=== PATIENT | female | born 1940 | race Caucasian/White ===

== ENCOUNTER → 2017-05-22 | Outpatient (CLI) | payer OTHER ==
[~2017-05-22] MED LIST: ASPI81TA28 PO; ATV/2 PO; BENZ100C84 PO; ESCI1TAB10 PO; FLNIN/ NAE; LCTX PO; LISI-729 PO; LVQ750 PO; POLYSOL4 OPB; PRLSR20 PO; SIMV20TA2 PO; TRAZ1TAB8 PO
[2017-05-22 09:58] LABS: ALT/SGPT 16 U/L (12-78); AST/SGOT 13 U/L (15-37); BLOOD UREA NITROGEN 19 mg/dl (7-18); CALCIUM 10.3 mg/dl (8.5-10.1); CARBON DIOXIDE 29 mmol/L (21-32); CHLORIDE 109 mmol/L (98-107); GLUCOSE 119 mg/dl (70-99); POTASSIUM 4.6 mmol/L (3.5-5.1); SODIUM 142 mmol/L (136-145)
[2017-05-22 10:01] LABS: ALB/GLOB RATIO 1.1 (0.9-2); ALKALINE PHOSPHATASE 62 U/L (45-117); CHOLESTEROL 139 mg/dl (0-200); CHOLESTEROL/HDL RATIO 2.4; HDL CHOLESTEROL 57 mg/dl; LDL CHOLESTEROL CALCULATED 61 mg/dl; TRIGLYCERIDES 106 mg/dl (0-150); VERY LOW DENSITY LIPOPROT CALC 21 mg/dl
== END | disposition home or self-care (01) ==
LOC: C.LAB1850 07:10
PROVIDERS: ATTEND Physician Assistant Medical
DX: I10 Essential (primary) hypertension (principal); E78.00 Pure hypercholesterolemia, unspecified

== ENCOUNTER → 2017-10-16 | Outpatient (CLI) | payer OTHER ==
[~2017-10-16] MED LIST changes: -TRAZ1TAB8 PO; +TRAZ1TAB9 PO
== END | disposition home or self-care (01) ==
LOC: C.LABSPEC 11:43
PROVIDERS: ATTEND Internal Medicine
DX: N39.0 Urinary tract infection, site not specified (principal)

== ENCOUNTER → 2017-11-25 | Outpatient (CLI) | payer OTHER ==
[~2017-11-25] MED LIST changes: +TRAZ-122 PO; -TRAZ1TAB9 PO
[2017-11-25 12:34] LABS: HEMATOCRIT 40.8 % (37-47); MEAN CELL VOLUME 89.1 fL (80-100); MEAN CORPUSCULAR HEMOGLOBIN 28.4 pg (25-34); MEAN CORPUSCULAR HGB CONC 31.9 g/dl (32-36); MEAN PLATELET VOLUME 12.1 fL (7.4-10.4); PLATELET COUNT 195 K/uL (130-400); RED CELL DISTRIBUTION WIDTH CV 14.6 % (11.5-14.5); RED CELL DISTRIBUTION WIDTH SD 47.6 fL (36.4-46.3); WHITE BLOOD COUNT 6.73 K/uL (4.8-10.8)
[2017-11-25 13:11] LABS: ALBUMIN 3.6 gm/dl (3.4-5.0); ALT/SGPT 15 U/L (12-78); AST/SGOT 17 U/L (15-37); BLOOD UREA NITROGEN 19 mg/dl (7-18); CALCIUM 9.7 mg/dl (8.5-10.1); CARBON DIOXIDE 29 mmol/L (21-32); CHOLESTEROL 171 mg/dl (0-200); CREATININE 0.64 mg/dl (0.60-1.20); GLUCOSE 78 mg/dl (70-99); SODIUM 141 mmol/L (136-145)
[2017-11-25 13:21] LABS: ALKALINE PHOSPHATASE 68 U/L (45-117); LDL CHOLESTEROL CALCULATED 92 mg/dl; TOTAL PROTEIN 7.1 gm/dl (6.4-8.2)
== END | disposition home or self-care (01) ==
LOC: C.LABBFT 07:38
PROVIDERS: ATTEND Internal Medicine
DX: E78.00 Pure hypercholesterolemia, unspecified (principal)

== ENCOUNTER → 2018-01-21 | Outpatient (CLI) | payer OTHER | END | disposition home or self-care (01) | LOC: C.LABSPEC 17:35 | PROVIDERS: ATTEND Physician Assistant Medical | DX: N39.0 Urinary tract infection, site not specified (principal) ==

== ENCOUNTER → 2018-05-26 | Outpatient (CLI) | payer OTHER ==
[~2018-05-26] MED LIST changes: -TRAZ-122 PO; +TRAZ-162 PO
[2018-05-26 10:11] LABS: BASO % 0.4 %; BASO ABS # 0.04 K/uL (0-0.2); EOS % 1.4 %; EOS ABS # 0.15 K/uL (0-0.5); HEMATOCRIT 40.5 % (37-47); IG# 0.02 K/uL (0.00-0.02); LYMPH % 20.1 %; LYMPH ABS # 2.23 K/uL (1.2-3.4); MEAN CELL VOLUME 88.2 fL (80-100); MEAN CORPUSCULAR HEMOGLOBIN 28.3 pg (25-34); MEAN CORPUSCULAR HGB CONC 32.1 g/dl (32-36); MEAN PLATELET VOLUME 12.2 fL (7.4-10.4); MONO % 4.6 %; MONO ABS # 0.51 K/uL (0.11-0.59); NEUT % 73.3 %; NEUT ABS # 8.12 K/uL (1.4-6.5); PLATELET COUNT 220 K/uL (130-400); RED CELL DISTRIBUTION WIDTH CV 14.5 % (11.5-14.5); WHITE BLOOD COUNT 11.07 K/uL (4.8-10.8)
[2018-05-26 10:25] LABS: ALBUMIN 3.4 gm/dl (3.4-5.0); ALKALINE PHOSPHATASE 57 U/L (45-117); ALT/SGPT 14 U/L (12-78); AST/SGOT 18 U/L (15-37); BLOOD UREA NITROGEN 15 mg/dl (7-18); CALCIUM 9.7 mg/dl (8.5-10.1); CARBON DIOXIDE 28 mmol/L (21-32); CHOLESTEROL 151 mg/dl (0-200); GLUCOSE 128 mg/dl (70-99); LDL CHOLESTEROL CALCULATED 83 mg/dl; POTASSIUM 4.4 mmol/L (3.5-5.1); SODIUM 141 mmol/L (136-145); TOTAL PROTEIN 6.7 gm/dl (6.4-8.2)
== END | disposition home or self-care (01) ==
LOC: C.LAB1850 07:23
PROVIDERS: ATTEND Internal Medicine
DX: I10 Essential (primary) hypertension (principal); E78.00 Pure hypercholesterolemia, unspecified

== ENCOUNTER 2021-07-03 07:37 | Inpatient (IN) ==
--- NOTE | 2021-06-30 09:35 | Anesthesiology Consultation ---
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 Butts with Dilation - Preston Butts MD Height/Weight Height: 5 ft 4 in Weight: 51.71 kg Allergies Allergy/AdvReac Type Severity Reaction Status Date / Time amoxicillin Allergy Mild nausea Verified 06/29/21 08:54 codeine AdvReac Mild STATES Verified 06/29/21 08:54 UPSETS STOMACH Medications Home Medications Medication Instructions Recorded Confirmed Last Taken propylene glycol 0.6 % eye drops 1 drops OP BID PRN 05/30/19 06/29/21 Unknown (Systane Balance) escitalopram oxalate 20 mg tablet 20 mg PO QAM 06/29/21 06/29/21 Unknown lisinopril 5 mg tablet 5 mg PO QAM 06/29/21 06/29/21 Unknown oxybutynin chloride 5 mg tablet 5 mg PO QAM 06/29/21 06/29/21 Unknown simvastatin 20 mg tablet 10 mg PO QAM 06/29/21 06/29/21 Unknown trazodone 100 mg tablet 100 mg PO HS 06/29/21 06/29/21 Unknown Past Medical History Medical History Depression (emotion) Dysphagia History of DVT of lower extremity roughly 15yrs ago--unknown cause, no blood thinners HTN (hypertension) Hypercholesteremia Osteoporosis Pneumonia (2015) Past Family History Family History Father Prostate cancer Kidney disease Mother Heart disease Brother Diabetes Kidney disease Other No family history of adverse response to anesthesia Past Surgical History Surgical History H/O total knee replacement left History of bilateral cataract extraction History of dilatation and curettage History of esophagogastroduodenoscopy (EGD) History of left hip replacement History of open reduction and internal fixation (ORIF) procedure left tibia fx--hardware removed History of tooth extraction all teeth removed Social History Smoking Status: Never smoker Do You Dip or Chew Tobacco: No Hx Alcohol Use: No Hx Substance Use: No substance use type: does not use Lab Results Anesthesia Preop Results Results Anesthesia Widget: WBC 5.64 K/uL (4.8-10.8) 06/27/21 Hgb 11.9 g/dL (12.0-16.0) L 06/27/21 Hct 38.1 % (37-47) 06/27/21 Plt 249 K/uL (130-400) 06/27/21 Na 143 mmol/L (136-145) 06/27/21 K 4.9 mmol/L (3.5-5.1) 06/27/21 Cl 112 mmol/L (98-107) H 06/27/21 CO2 29 mmol/L (21-32) 06/27/21 BUN 14 mg/dl (7-18) 06/27/21 Creat 0.82 mg/dl (0.6-1.2) 06/27/21 Glucose Level 90 mg/dl (70-99) 06/27/21 HA1c 5.6 % (4.5-5.6) 06/27/21 Urine Color Yellow 05/31/21 Urine Appearance Turbid (Clear) A 05/31/21 Urine pH 8.0 (4.5-7.5) H 05/31/21 Urine Specific [place] 1.014 (1.000-1.030) 05/31/21 Urine Protein 1+ (Negative) H 05/31/21 Urine Glucose (UA) Negative (Negative) 05/31/21 Urine Ketones Negative (Negative) 05/31/21 Urine Blood Trace (Negative) H 05/31/21 Urine Nitrite Negative (Negative) 05/31/21 Urine Bilirubin Negative (Negative) 05/31/21 Urine Urobilinogen Negative (Negative) 05/31/21 Urine Leukocyte Esterase 3+ (Negative) H 05/31/21 Urine WBC (Auto) >30 /hpf (0-5) H 05/31/21 Urine RBC (Auto) 5-10 /hpf (0-4) H 05/31/21 Urine Hyaline Casts (Auto) 1-5 /lpf (0-5) 05/31/21 Urine Epithelial Cells (Auto) >30 /lpf (0-5) H 05/31/21 Urine Bacteria (Auto) 4+ (Negative) H 05/31/21 Urine Yeast Not Reportable 05/31/21
[2021-07-03] MEDS ORDERED: PROPOFOL IV EMULSION 10 MG/ML 20 ML VIAL IV ONE (08:16)
[2021-07-03] MEDS ORDERED: LIDOCAINE 2% 2 ML VIAL/AMP(20MG/ML) INFIL ONE (08:16)
--- NOTE | 2021-07-03 08:34 | History & Physical Report ---
Date of Service July 03, 2021 Assessment & Plan (1) Dysphagia: Plan: Proceed with EGD and dilation risks/benefits and procedure discussed with patient, who agrees to proceed History of Present Illness Primary Care Provider: Troy Lewis MD 80 yo female here for egd with dilation. Allergies Allergy/AdvReac Type Severity Reaction Status Date / Time amoxicillin Allergy Mild nausea Verified 07/03/21 07:51 codeine AdvReac Mild STATES Verified 07/03/21 07:51 UPSETS STOMACH Home Medications Medication Instructions Recorded Confirmed Type propylene glycol 0.6 % eye drops 1 drops OP BID PRN 05/30/19 07/03/21 History (Systane Balance) escitalopram oxalate 20 mg tablet 20 mg PO QAM 06/29/21 07/03/21 History lisinopril 5 mg tablet 5 mg PO QAM 06/29/21 07/03/21 History oxybutynin chloride 5 mg tablet 5 mg PO QAM 06/29/21 07/03/21 History simvastatin 20 mg tablet 10 mg PO QAM 06/29/21 07/03/21 History trazodone 100 mg tablet 100 mg PO HS 06/29/21 07/03/21 History Past Med/Surg History Medical History Depression (emotion) Dysphagia History of DVT of lower extremity roughly 15yrs ago--unknown cause, no blood thinners HTN (hypertension) Hypercholesteremia Osteoporosis Pneumonia (2015) Surgical History H/O total knee replacement left History of bilateral cataract extraction History of dilatation and curettage History of esophagogastroduodenoscopy (EGD) History of left hip replacement History of open reduction and internal fixation (ORIF) procedure left tibia fx--hardware removed History of tooth extraction all teeth removed Family History Father Prostate cancer Kidney disease Mother Heart disease Brother Diabetes Kidney disease Other No family history of adverse response to anesthesia Social History Smoking Status: Never smoker Second Hand Exposure: No; Do You Dip or Chew Tobacco: No; Tobacco Cessation Education Requested by Patient: No Hx Alcohol Use: No Hx Substance Use: No Preferred Language: [place] Communication Ability: Effective Hearing Ability: Normal Senior Project Leader/Team Lead Required: No Beliefs That Will Affect Care: None marital status: Current Living Situation: Alone current occupational status: other 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 [employer] Other Information That Helps Us Care for You: No Feels Safe at Home: Yes Safety Concerns: Feels Safe At This Time Seatbelt Use: always Sunscreen Use: No Assistive Devices: Denture - Upper and Denture - Lower Assistive Devices Comment: full upper/lower Physical Exam Constitutional: WD/WN, vitals as above Respiratory: normal respiratory effort, lungs clear to auscultation Cardiovascular: RRR, no murmur, no edema Gastrointestinal (Abdomen): normal bowel sounds, soft, nontender, no hepatosplenomegaly Musculoskeletal: no lower extremity edema Psychiatric: A+Ox3, euthymic affect Results & Data ([facility]) Vital Signs (Past 12 Hours) Vital Signs Temp Pulse Resp BP Pulse Ox 07/03/21 07:52 36.4 C L 70 16 182/91 H 98 Coding Level of Care Code INT OBSERVATION CARE 70M LVL 3 Diagnoses Dysphagia R13.10
[2021-07-03] MEDS ORDERED: SODIUM CHLORIDE 0.9% 1000ML 1,000 ML IV SCH (08:45)
--- NOTE | 2021-07-03 08:56 | GI REPORT ---
Patient Name: Jennifer Patel Procedure Date: 07/03/2021 8:23 AM Date of : 1940 Admit Type: Outpatient Age: 80 Gender: Female Attending MD: Preston Butts MD Procedure: Upper GI endoscopy Providers: Preston Butts MD Referring MD: Troy Lewis Indications: Dysphagia Medicines: Monitored Anesthesia Care Complications: No immediate complications. Estimated blood loss: None. Estimated Blood Loss: Estimated blood loss: none. Procedure: Pre-Anesthesia Assessment: - Prior Anticoagulants: The patient has taken no previous anticoagulant or antiplatelet agents. - ASA Grade Assessment: III - A patient with severe systemic disease. After obtaining informed consent, the endoscope was passed under direct vision. Throughout the procedure, the patient's blood pressure, pulse, and oxygen saturations were monitored continuously. The Endoscope was introduced through the mouth, with the intention of advancing to the duodenum. The scope was advanced to the upper third of the esophagus before the procedure was aborted. Medications were given. The upper GI endoscopy was accomplished without difficulty. The patient tolerated the procedure well. Findings: Food was found in the upper third of the esophagus. significant solid food, unable to advance past it and due to high risk of aspiration as patient was not intubated, procedure was aborted. Impression: - Food in the upper third of the esophagus. - No specimens collected. Recommendation: - Admit the patient to [facility] for [facility] care. -NPO -obtain CT soft tissue neck to further evaluate -EGD likely tomorrow in the OR while intubated -aspiration precautions Preston Butts MD 07/03/2021 8:55:55 AM This report has been signed electronically. Note Initiated On: 07/03/2021 8:23 AM Number of Addenda: 0 I attest to the content of the Intraoperative Record and orders documented therein, exceptions below {[id number]}
--- NOTE | 2021-07-03 09:18 | History & Physical Report ---
Date of Service July 03, 2021 Assessment & Plan (1) Dysphagia: Plan: Reported ongoing for several months. EGD today with Dr. Butts which noted food in the upper third of the esophagus Discussed with GI and patient on medical and make n.p.o. Will obtain soft tis iker CT of the neck to further evaluate and plan for EGD likely tomorrow in the OR under anesthesia Admit to medical Aspiration precautions N.p.o. Gentle IV fluids while n.p.o. with NS @ 70cc/hr Chest x-ray and EKG pre-op CT neck soft tissue GI consulted - aware as above Repeat COVID testing per OR prior to procedure Labs in AM (2) HTN (hypertension): Plan: Chronic. Well-controlled. Currently 134/83 however will hold her while n.p.o. and can Days hydralazine as needed blood pressure. Continue to monitor (3) Hypercholesteremia: Plan: Hold simvastatin while n.p.o. resume when able--patient takes 10 mg daily (4) Pigmented skin lesion: Plan: Recently seen by PCP and recommendations for follow-up with dermatology as outpatient for excisional biopsy/punch biopsy for the investigation. No family history of skin cancers (5) Overactive bladder: Plan: Reports frequent urinary frequency and urgency and overactive bladder. Did not want follow-up with urology at most recent PCP office visit Continue oxybutynin 5 mg daily when able to take p.o. --> PATIENT DOES NOT TAKE THIS ANYMORE Plan: DVT PROPHYLAXIS -- no chemical given OR tomorrow (hx DVT x 2. 2nd to immobility and needed eliquis x 6 months after last one)./ Utilizing SCDs/zully hose for now but if remains inpatient after procedure would starting chemoproph NPO for EGD in OR tomorrow Repeat COVID testing pending Pre-op CXR/EKG and will obtain CT soft tissue neck per GI recs History of Present Illness Chief Complaint: Admission, dysphagia Primary Care Provider: Troy Lewis MD 80-year-old female presented for EGD with Dr. Butts 07/03 for complaints of dysphagia to solid foods for several years which she admits has been worse over the past year. No issues with solids, but mainly liquids. No pain. Has had some regurgitation with this but has been able to clear secretions without issue. No shortness of breath or chest pain. She does have weight loss- 2lb in the year at her PCP visit but she states this had been due to decreased ability for oral intake. EGD performed today showed food within the esophagus discussion was had with the GI provider and decision made to admit the patient, make n.p.o. obtain CT soft tissue neck for further evaluation and perform EGD tomorrow in the OR under general anesthesia. Patient medical history significant for hypertension, hypercholesterolemia, urinary frequency and urgency (but states she does not take oxybuytnin anymore), anemia. Discussed obtaining CXR and EKG-pre-op. She is nervous/apprehensive about undergoing anesthesia. Hx DVT -- 1 after last child and 1 requiring 6 months of medication she was apprehensive about taking (discovered to be Eliquis) as she was waiting in [place] very immobile awaiting cardiac surgery. No recent fevers, chills, chest pain, shortness of breath, abd pain, nausea, vomiting or other symptoms at this time. Questions/concerns addressed/ Allergies Allergy/AdvReac Type Severity Reaction Status Date / Time amoxicillin Allergy Mild nausea Verified 07/03/21 07:51 codeine AdvReac Mild STATES Verified 07/03/21 07:51 UPSETS STOMACH Home Medications Medication Instructions Recorded Confirmed Type propylene glycol 0.6 % eye drops 1 drops OP BID PRN 05/30/19 07/03/21 History (Systane Balance) escitalopram oxalate 20 mg tablet 20 mg PO QAM 06/29/21 07/03/21 History lisinopril 5 mg tablet 5 mg PO QAM 06/29/21 07/03/21 History simvastatin 20 mg tablet 10 mg PO QAM 06/29/21 07/03/21 History trazodone 100 mg tablet 100 mg PO HS 06/29/21 07/03/21 History cholecalciferol (vitamin D3) 25 2,000 unit PO QAM 30 Days #60 cap 07/04/21 Rx mcg (1,000 unit) capsule Past Med/Surg History Medical History Depression (emotion) Dysphagia History of DVT of lower extremity roughly 15yrs ago--unknown cause, no blood thinners HTN (hypertension) Hypercholesteremia Osteoporosis Pneumonia (2014) Surgical History H/O total knee replacement left History of bilateral cataract extraction History of dilatation and curettage History of esophagogastroduodenoscopy (EGD) History of left hip replacement History of open reduction and internal fixation (ORIF) procedure left tibia fx--hardware removed History of tooth extraction all teeth removed Family History Father Prostate cancer Kidney disease Mother Heart disease Brother Diabetes Kidney disease Other No family history of adverse response to anesthesia Social History Smoking Status: Never smoker Second Hand Exposure: No; Hx Alcohol Use: No Hx Substance Use: No Preferred Language: Sami Communication Ability: Effective Hearing Ability: Normal Grinder Operator Required: No Beliefs That Will Affect Care: None marital status: Current Living Situation: Alone current occupational status: other 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 on room air CV: RRR, no r/m/g, no edemam no calf edema GI: +BS, soft, non-tender, no organomegaly : no melton No lymphadenopathy appreciated Skin: cool, dry, general pallor, cap refill <3 seconds MSK: moves all extremities pSYCH: AOx3, anxious affect Results & Data Results & Data ([facility]) Vital Signs (Past 12 Hours) Vital Signs Temp Pulse Pulse Resp BP Pulse Ox 07/03/21 08:52 70 16 106/68 98 07/03/21 07:52 36.4 C L 70 16 182/91 H 98 Supervising Physician Co-Signing Physician Notes Attending Attestation & Admission Note: Pt seen/examined, chart reviewed, care plan d/w ERNA Felder. I agree w/ the phelps components of her admission documentation. 80yo female presents with progressive dysphagia for solids, malodorous breath, and recent weight loss. Underwent EGD today by Dr Butts showing food impaction and inability to advance the scope beyond this. Soft tissue neck CT showed concern for large esophageal diverticulum. Dr Butts to perform repeat EGD under general anesthesia tomorrow to remove the impacted food and to confirm the diagnosis of suspected diverticulum. Saw patient post-EGD on the med/surg floor. Was resting comfortably. We discussed EGD and CT findings. PMH, PSH, allergies, meds, sochx, famhx - reviewed VSS, afebrile gen - NAD, thin mouth - MMM neck - no masses; no JVD; no thyroidmegaly heart - RRR, s1 s2, no murmur lungs - CTA b/l abd - soft NT ND BS+ ext - no edema labs, imaging reviewed EGD findings reviewed A/P: 1. 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 2. esophageal food impaction 2nd to #1. 3. mild protein calorie malnutrition. 4. UTI. Jonn Harris MD PG Care Time/CCT Total # of Minutes Spent Total Time Spent with Patient: Total time spent is greater than 50% in coordination of care (as documented) at patient's floor/unit and/or counseling patient: Coding Level of Care Code 26058 Initial Inpt Care Lvl 3 Diagnoses Dysphagia R13.10 HTN (hypertension) I10 Hypercholesteremia E78.00 Pigmented skin lesion L81.9 Overactive bladder N32.81
--- NOTE | 2021-07-03 09:44 | Anesthesiology Progress Note ---
Date of Service July 03, 2021 Anesthesia Post Procedure Vital Signs Vital Signs: Temp Pulse Pulse Resp BP Pulse Ox 07/03/21 09:21 64 16 176/81 H 96 07/03/21 09:07 61 16 134/83 96 07/03/21 08:52 70 16 106/68 98 07/03/21 07:52 36.4 C L 70 16 182/91 H 98 Transfer of Care Handoff Completed per policy Notes Mental Status: alert / awake / arousable and participated in evaluation Nausea / Vomiting: adequately controlled Pain: adequately controlled Airway Patency, RR, SpO2: stable & adequate BP & HR: stable & adequate Hydration State: stable & adequate Anesthetic Complications: no major complications apparent and Pt Satisfied with anesthetic care
[2021-07-03] MEDS ORDERED: ARTIFICIAL TEARS OP PRN (10:16)
[2021-07-03] MEDS ORDERED: hydrALAZINE HCL 20 MG/ML VIAL IV PRN (10:31)
--- NOTE | 2021-07-03 10:58 | Gastrointestinal Consultation ---
Date of Consultation July 03, 2021 Assessment & Plan (1) Food impaction of esophagus: -Please keep patient NPO -Recommend CT of the soft tissue of the neck -EGD in OR on 07/04/21 for further evaluation History of Present Illness Reason for Consultation: Dysphagia Attending Physician: Jonn Harris History of Present Illness Patient is an 80 yo female who presented for an outpatient EGD on 07/03/21 for further evaluation of dysphagia. She was noted to have food in the upper esophagus. The procedure was aborted. Patient is not on a PPI as an outpatient. She notes dysphagia for many years with solids in particular. She has noted regurgitation after eating. She has denied odynophagia or GERD symptoms. Allergies Allergy/AdvReac Type Severity Reaction Status Date / Time amoxicillin Allergy Mild nausea Verified 07/03/21 07:51 codeine AdvReac Mild STATES Verified 07/03/21 07:51 UPSETS STOMACH Home Medications Medication Instructions Recorded Confirmed Type propylene glycol 0.6 % eye drops 1 drops OP BID PRN 05/30/19 07/03/21 History (Systane Balance) escitalopram oxalate 20 mg tablet 20 mg PO QAM 06/29/21 07/03/21 History lisinopril 5 mg tablet 5 mg PO QAM 06/29/21 07/03/21 History oxybutynin chloride 5 mg tablet 5 mg PO QAM 06/29/21 07/03/21 History simvastatin 20 mg tablet 10 mg PO QAM 06/29/21 07/03/21 History trazodone 100 mg tablet 100 mg PO HS 06/29/21 07/03/21 History Patient History Medical History Depression (emotion) Dysphagia History of DVT of lower extremity roughly 15yrs ago--unknown cause, no blood thinners HTN (hypertension) Hypercholesteremia Osteoporosis Pneumonia (2015) Surgical History H/O total knee replacement left History of bilateral cataract extraction History of dilatation and curettage History of esophagogastroduodenoscopy (EGD) History of left hip replacement History of open reduction and internal fixation (ORIF) procedure left tibia fx--hardware removed History of tooth extraction all teeth removed Family History Father Prostate cancer Kidney disease Mother Heart disease Brother Diabetes Kidney disease Other No family history of adverse response to anesthesia Social History Smoking Status: Never smoker Second Hand Exposure: No; Do You Dip or Chew Tobacco: No; Tobacco Cessation Education Requested by Patient: No Hx Alcohol Use: No Hx Substance Use: No Preferred Language: Romanian Communication Ability: Effective Hearing Ability: Normal Rn Transitional Required: No Beliefs That Will Affect Care: None marital status: Current Living Situation: Alone current occupational status: other 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 Butts for 07/03/21 for ROS Physical Exam Physical Exam: Please refer to existing H&P by Dr. Butts on 07/03/21 for Physical Exam Results & Data ([facility]) Vital Signs (Past 12 Hours) Vital Signs Temp Pulse Pulse Resp BP Pulse Ox 07/03/21 10:34 36.9 C 68 20 165/77 H 95 07/03/21 10:00 36.6 C 68 16 158/79 H 97 07/03/21 09:21 64 16 176/81 H 96 07/03/21 09:07 61 16 134/83 96 07/03/21 08:52 70 16 106/68 98 07/03/21 07:52 36.4 C L 70 16 182/91 H 98 PG Care Time/CCT Total # of Minutes Spent Total Time Spent with Patient: Total time spent is greater than 50% in coordination of care (as documented) at patient's floor/unit and/or counseling patient: Coding Level of Care Code None Diagnoses Food impaction of esophagus T18.128A
--- NOTE | 2021-07-03 11:03 | XRay Report ---
XR chest 1V portable INDICATION: Esophageal obstruction. TECHNIQUE: Single frontal radiograph of the chest was obtained. Comparison: None available at the time of this dictation. FINDINGS: No lines and tubes are seen. Calcified aortic knob is seen. The lungs are clear. No evidence of pleur al effusion or pneumothorax. IMPRESSION: No acute chest disease. ACT 112: Negative or not required by law. Electronically signed by: Rah Rich M.D. 07/03/2021 11:02 AM
[2021-07-03] MEDS ORDERED: lisinopril 5 MG TAB PO ONE (11:35)
[2021-07-03] MEDS: SODIUM CHLORIDE 0.9% 1000ML 1,000 ML IV SCH (11:40)
[2021-07-03] MEDS ORDERED: OPTIRAY 320 100ml IV ONE (11:57)
--- NOTE | 2021-07-03 12:29 | CT Scan Report ---
CT OF THE NECK WITH IV CONTRAST CLINICAL HISTORY: Dysphasia. Evaluate for mass. COMPARISON STUDY: No previous studies for comparison. TECHNIQUE: Following IV administration of 93 mL of Optiray, helical axial images of the neck were ob tained. Sagittal and coronal reconstructions were viewed. Automated exposure control was utilized f or the study. A dose lowering technique was utilized adhering to the principles of ALARA. CT DOSE: 240.38 mGy.cm FINDINGS: Visualized portions of the intracranial contents are unremarkable. Orbits are unremarkable . No cervical lymphadenopathy is present. The epiglottis is normal. No mucosal lesion is identified a lthough these may be occult by CT. Note is made of a 5.8 x 3.3 x 5 cm fluid and gas containing outpou isabella arising from the cervical esophagus, located within the left lower neck. This extends into the upper mediastinum. No additional diverticula are present. The airway is patent. Major vasculature of the neck is patent. Minimal groundglass opacity within visualized portions of the right upper lobe is noted. IMPRESSION: 5.8 x 3.3 x 5 cm fluid and gas containing outpouching arising from the left lateral aspe ct of the cervical esophagus consistent with an esophageal diverticulum. This favors a Milind Jamies on diverticulum although a Zenker's diverticulum could appear similar. This could account for the pat ient's symptoms. ACT 112: Negative or not required by law. Electronically signed by: Mehran Herman M.D. 07/03/2021 12:28 PM
--- NOTE | 2021-07-03 14:15 | Anesthesiology Consultation ---
Date of Service July 03, 2021 Assessment & Plan (1) Encounter for pre-operative examination: Chart Review Chart Review: Acceptable Risk for Surgery and Patient NOT seen in Pre Admission Testing Will order preop ECG as patient may need to undergo a general anesthetic. Consults Requested none History Surgery Operation Date: 07/03/21 08:45 Proposed Procedures p Esophagogastroduodenoscopy Dr. Butts with Dilation - Preston Butts MD Operation Date: 07/04/21 07:00 Proposed Procedures p Esophagogastroduodenoscopy - Preston Butts MD Height/Weight Height: 5 ft 4 in Weight: 50.4 kg Allergies Allergy/AdvReac Type Severity Reaction Status Date / Time amoxicillin Allergy Mild nausea Verified 07/03/21 07:51 codeine AdvReac Mild STATES Verified 07/03/21 07:51 UPSETS STOMACH Medications Home Medications Medication Instructions Recorded Confirmed Last Taken propylene glycol 0.6 % eye drops 1 drops OP BID PRN 05/30/19 07/03/21 07/02/21 (Systane Balance) escitalopram oxalate 20 mg tablet 20 mg PO QAM 06/29/21 07/03/21 07/02/21 lisinopril 5 mg tablet 5 mg PO QAM 06/29/21 07/03/21 07/02/21 oxybutynin chloride 5 mg tablet 5 mg PO QAM 06/29/21 07/03/21 Unknown simvastatin 20 mg tablet 10 mg PO QAM 06/29/21 07/03/21 07/02/21 trazodone 100 mg tablet 100 mg PO HS 06/29/21 07/03/21 07/02/21 Active Medications Generic Name Dose Route Start Last Admin Trade Name Freq PRN Reason Stop Dose Admin Hydralazine HCl 10 mg 07/03/21 10:31 07/03/21 11:28 Hydralazine Hcl 20 Mg/Ml Vial IV 08/02/21 10:30 10 mg Q8 PRN Administration hypertension sbp >180 Sodium Chloride 1,000 mls @ 70 mls/hr 07/03/21 10:05 07/03/21 11:40 Nss 1000ml IV 08/02/21 10:04 70 mls/hr .[id number] HENRY Administration NPO Date Last Intake of Fluids: 07/02/21 Time Last Intake of Fluids: 17:00 Date Last Intake of Solids: 07/02/21 Time Last Intake of Solids: 17:00 Past Medical History Medical History Depression (emotion) Dysphagia History of DVT of lower extremity roughly 15yrs ago--unknown cause, no blood thinners HTN (hypertension) Hypercholesteremia Osteoporosis Pneumonia (2015) Past Family History Family History Father Prostate cancer Kidney disease Mother Heart disease Brother Diabetes Kidney disease Other No family history of adverse response to anesthesia Past Surgical History Surgical History H/O total knee replacement left History of bilateral cataract extraction History of dilatation and curettage History of esophagogastroduodenoscopy (EGD) History of left hip replacement History of open reduction and internal fixation (ORIF) procedure left tibia fx--hardware removed History of tooth extraction all teeth removed EGD 07/03/21: MAC with propofol. Unable to complete procedure as food noted in her upper esophagus and procedure was aborted. Social History Smoking Status: Never smoker Do You Dip or Chew Tobacco: No Hx Alcohol Use: No Hx Substance Use: No substance use type: does not use Physical Exam Vital Signs Last Vital Signs Temp 36.8 C 07/03/21 12:35 Pulse 86 07/03/21 12:35 Resp 18 07/03/21 12:35 BP 162/76 H 07/03/21 12:35 Pulse Ox 96 07/03/21 12:35 Testing Laboratory Results Laboratory Tests 06/27/21 06/27/21 07:44 07:44 WBC 5.64 Hgb 11.9 L Hct 38.1 Plt Count 249 Sodium 143 Potassium 4.9 Chloride 112 H Carbon Dioxide 29 BUN 14 Creatinine 0.82 Glucose 90
[2021-07-03] MEDS ORDERED: ONDANSETRON INJ 2 MG/ML 2 ML VIAL IV PRN (14:16)
[2021-07-03] MEDS: cephALEXin 250 MG CAP PO SCH ×2 (17:21→20:34)
[2021-07-04] MEDS: SODIUM CHLORIDE 0.9% 1000ML 1,000 ML IV SCH ×2 (01:27→14:32)
[2021-07-04 06:27] LABS: Hematocrit (blood only) 36.5 % (37-47); Mean Corpuscular Hemoglobin 29.9 pg (25-34); Mean Corpuscular Hgb Conc 32.9 g/dL (32-36); Mean Corpuscular Volume 90.8 fL (80-100); Mean Platelet Volume 11.3 fL (7.4-10.4); Platelet Count 235 K/uL (130-400); RDW Coefficient of Variation 13.9 % (11.5-14.5); RDW Standard Deviation 46.4 fL (36.4-46.3); Red Blood Count 4.02 M/uL (4.2-5.4); White Blood Count 6.94 K/uL (4.8-10.8)
[2021-07-04 07:02] LABS: BUN Creatinine Ratio 24.7 (10-20); Calcium 9.9 mg/dl (8.5-10.1); Creatinine Clr Calc Pharmacy 53.3 ml/min; Est GFR (African American) 96.2 ml/min
--- NOTE | 2021-07-04 07:56 | Hospitalist Progress Note ---
Date of Service July 04, 2021 Assessment & Plan (1) Dysphagia: Plan: Reported ongoing for several months. EGD today with Dr. Butts which noted food in the upper third of the esophagus Discussed with GI and patient on medical and make n.p.o. Will obtain soft tis iker CT of the neck to further evaluate and plan for EGD likely tomorrow in the OR under anesthesia Continue aspiration precautions IVF @ 70cc/hr while NPO -- increase to 90cc/hr today for some dehydration Pre-op CXR without infectious process, EKG NSR CT neck soft tissue w/ 5.8 x 3.3 x 5 cm fluid and gas containing outpouching arising from the left lateral aspect of the cervical esophagus consistent with an esophageal diverticulum. This favors a [place] Nancy diverticulum although a Zenker's diverticulum could appear similar. This could account for the patient's symptoms. GI consulted - aware as above plans for EGD today ?Speech after for dietary modification -- messaged to see if could be completed this afternoon for possible d/c vs tomorrow. Likely to need set up w surgery in future for treatment Repeat COVID testing per OR prior to procedure -- NEGATIVE Labs in AM (2) HTN (hypertension): Plan: Chronic. Well-controlled typically but noted high at last PCP appt due to emotional lability Currently 169/69 but asymptomatic Given her lisinopril on 07/03 but currently on hold given likely drop after anesthesia Rec checking BP at home and if remains elevated in home environment would rec increase to anti-HTN regimen Would avoid CCB or HCTZ given hypercalcemia on prior labs (Low Vit D, PTH appropriately elevated) Hydralazine prn Continue to monitor (3) Hypercholesteremia: Plan: Hold simvastatin while n.p.o. resume when able--patient takes 10 mg daily (4) Pigmented skin lesion: Plan: Recently seen by PCP and recommendations for follow-up with dermatology as outpatient for excisional biopsy/punch biopsy for the investigation. No family history of skin cancers (5) Overactive bladder: Plan: Reports frequent urinary frequency and urgency and overactive bladder. Did not want follow-up with urology at most recent PCP office visit Continue oxybutynin 5 mg daily when able to take p.o. --> PATIENT DOES NOT TAKE THIS ANYMORE Likely w cystitis --. alpha strep on multiple urine cx. no recent abx but endorsed frequency. --> started keflex and complete course. f/u pcp for clearance (6) Food impaction of esophagus: Plan: on initial EGD repeat EGD for today as above (7) Cystitis: Plan: to complete short course keflex as above (8) Hypercalcemia: Plan: prior elevations 10.4 and 10.2 with normal albumin Vit D checked, slightly low and started supplementation for tomorrow when taking PO PTH appropriately elevated Ca normal on AM labs Follow up PCP Plan: DVT PROPHYLAXIS -- no chemical given OR tomorrow (hx DVT x 2. 2nd to immobility and needed eliquis x 6 months after last one) Utilizing SCDs/zully hose for now but if remains inpatient after procedure would starting chemoproph Admission and Anticipated Discharge Date Admission Date: July 03, 2021 Subjective Patient eval this morning. Anxious for procedure. BP up but discussed could be anxiety and hospital. No symptoms of headache /blurred vision/cp/sob. She had elevated BP at last PCP but notes she was upset they cancelled three times and she was a little emotional at that visit. She has a cuff at home and discussed checking at home and if remains elevated would rec increase antihypertensives with her PCP. Discussed low vitamin D and hx elevated Ca. Normal on AM labs but start low dose Vit D and would continue at d/c. Also tx with Keflex for urine and cont at d/c . Discussed oxybutynin and likely not working due to cystitis and would have her PCP repeat urine after tx to ensure cleared. No fever, chills, chest pain, shortness of breath, abdominal pain, nausea, vomiting at this time. Questions/concerns addressed. She would ideally like to be discharged tonight if possible. Review of Systems Review of Systems: All systems reviewed & are unremarkable except as noted in HPI & below Physical Exam Physical Exam: well developed, appears stated age, no acute distress eyes anicteric, GUCCI, drying to eyes appreciated with tearing to R eye ENT; dry mm (slightly worse), no tracheal deviation Resp; CTAB, no w/c/r or accessory muscle use. on room air CV: RRR, no r/m/g, no edema, no calf tenderness GI: +BS, soft, non-tender, no organomegaly : no melton No lymphadenopathy appreciated Skin: cool, dry, general pallor, cap refill <3 seconds MSK: moves all extremities pSYCH: AOx3, anxious affect about d/c later today hopefully Results & Data Results & Data ([facility]) Vital Signs (Past 12 Hours) Vital Signs Temp Pulse Resp BP Pulse Ox 07/04/21 07:10 37.2 C 83 16 169/69 H 95 07/03/21 22:48 37.1 C 81 16 163/70 H 96 Laboratory Results 07/04/21 07/04/21 07/03/21 Range/Units 05:50 05:50 11:43 WBC 6.94 (4.8-10.8) K/uL RBC 4.02 L (4.2-5.4) M/uL Hgb 12.0 (12.0-16.0) g/dL Hct 36.5 L (37-47) % MCV 90.8 (80-100) fL MCH 29.9 (25-34) pg MCHC 32.9 (32-36) g/dL RDW Std Deviation 46.4 H (36.4-46.3) fL RDW Coeff of Robin 13.9 (11.5-14.5) % Plt Count 235 (130-400) K/uL MPV 11.3 H (7.4-10.4) fL Sodium 140 (136-145) mmol/L Potassium 4.0 (3.5-5.1) mmol/L Chloride 110 H (98-107) mmol/L Carbon Dioxide 24 (21-32) mmol/L Anion Gap 6.0 (3-11) BUN 17 (7-18) mg/dl Creatinine 0.67 (0.6-1.2) mg/dl Est Cr Clr Drug Dosing 53.3 ml/min Est GFR ( Amer) 96.2 ml/min Est GFR (Non-Af Amer) 83.0 ml/min BUN/Creatinine Ratio 24.7 H (10-20) Glucose 79 (70-99) mg/dl Calcium 9.9 (8.5-10.1) mg/dl COVID-19 Eval Order SARS-CoV-2 (PCR) NEGATIVE (Negative) 07/03/21 Range/Units 11:43 WBC (4.8-10.8) K/uL RBC (4.2-5.4) M/uL Hgb (12.0-16.0) g/dL Hct (37-47) % MCV (80-100) fL MCH (25-34) pg MCHC (32-36) g/dL RDW Std Deviation (36.4-46.3) fL RDW Coeff of Robin (11.5-14.5) % Plt Count (130-400) K/uL MPV (7.4-10.4) fL Sodium (136-145) mmol/L Potassium (3.5-5.1) mmol/L Chloride (98-107) mmol/L Carbon Dioxide (21-32) mmol/L Anion Gap (3-11) BUN (7-18) mg/dl Creatinine (0.6-1.2) mg/dl Est Cr Clr Drug Dosing ml/min Est GFR ( Amer) ml/min Est GFR (Non-Af Amer) ml/min BUN/Creatinine Ratio (10-20) Glucose (70-99) mg/dl Calcium (8.5-10.1) mg/dl COVID-19 Eval Order Covid19 at [facility] SARS-CoV-2 (PCR) (Negative) Diagnostic Findings Chest X-Ray 07/03/21 10:05 XR chest 1V portable INDICATION: Esophageal obstruction. TECHNIQUE: Single frontal radiograph of the chest was obtained. Comparison: None available at the time of this dictation. FINDINGS: No lines and tubes are seen. Calcified aortic knob is seen. The lungs are clear. No evidence of pleural effusion or pneumothorax. IMPRESSION: No acute chest disease. ACT 112: Negative or not required by law. Electronically signed by: Rah Rich M.D. 07/03/2021 11:02 AM Soft Tissue Neck CT 07/03/21 10:05 CT OF THE NECK WITH IV CONTRAST CLINICAL HISTORY: Dysphasia. Evaluate for mass. COMPARISON STUDY: No previous studies for comparison. TECHNIQUE: Following IV administration of 93 mL of Optiray, helical axial images of the neck were obtained. Sagittal and coronal reconstructions were viewed. Automated exposure control was utilized for the study. A dose lowering technique was utilized adhering to the principles of ALARA. CT DOSE: 240.38 mGy.cm FINDINGS: Visualized portions of the intracranial contents are unremarkable. Orbits are unremarkable. No cervical lymphadenopathy is present. The epiglottis is normal. No mucosal lesion is identified although these may be occult by CT. Note is made of a 5.8 x 3.3 x 5 cm fluid and gas containing outpouching arising from the cervical esophagus, located within the left lower neck. This extends into the upper mediastinum. No additional diverticula are present. The airway is patent. Major vasculature of the neck is patent. Minimal groundglass opacity within visualized portions of the right upper lobe is noted. IMPRESSION: 5.8 x 3.3 x 5 cm fluid and gas containing outpouching arising from the left lateral aspect of the cervical esophagus consistent with an esophageal diverticulum. This favors a [place] Nancy diverticulum although a Zenker's diverticulum could appear similar. This could account for the patient's symptoms. ACT 112: Negative or not required by law. Electronically signed by: Mehran Herman M.D. 07/03/2021 12:28 PM PG Care Time/CCT Total # of Minutes Spent Total Time Spent with Patient: Total time spent is greater than 50% in coordination of care (as documented) at patient's floor/unit and/or counseling patient: Coding Diagnoses Dysphagia R13.10 HTN (hypertension) I10 Hypercholesteremia E78.00 Pigmented skin lesion L81.9 Overactive bladder N32.81 Food impaction of esophagus T18.128A Cystitis N30.90 Hypercalcemia E83.52
--- NOTE | 2021-07-04 09:16 | History & Physical Bridge Note ---
Date of Service July 04, 2021 History & Physical Bridge Note I have examined the patient, reviewed the History & Physical and in the interval since the performance of the History & Physical I have noted the following changes of clinical significance: CT soft tissues of the neck indicates a 5.8 x 3.3 x 5 cm fluid and gas containing outpouching arising from the left lateral aspect of the cervical esophagus consistent with an esophageal diverticulum. This favors a [place] Nancy diverticulum although a Zenker's diverticulum could appear similar. Patient has been NPO. Will proceed with EGD to remove food, however patient will ultimately likely require advanced endo evaluation or ENT surgical evaluation for this diverticulum given the size.
[2021-07-04] MEDS: cephALEXin 250 MG CAP PO SCH ×3 (09:27→17:14)
[2021-07-04] MEDS ORDERED: ePHEDrine sulfate 50 MG/ML AMP IV PRN (12:04)
[2021-07-04] MEDS ORDERED: ATROPINE SULFATE 0.1 MG/ML 10ML SYR IV PRN (12:04)
--- NOTE | 2021-07-04 12:04 | Anesthesiology Consultation ---
Date of Service July 04, 2021 Assessment & Plan (1) Encounter for pre-operative examination: History Surgery Operation Date: 07/03/21 08:45 Proposed Procedures p Esophagogastroduodenoscopy Dr. Butts with Dilation - Preston Butts MD Operation Date: 07/04/21 07:00 Proposed Procedures p Esophagogastroduodenoscopy - Preston Butts MD Height/Weight Height: 5 ft 4 in Weight: 50.4 kg Allergies Allergy/AdvReac Type Severity Reaction Status Date / Time amoxicillin Allergy Mild nausea Verified 07/03/21 07:51 codeine AdvReac Mild STATES Verified 07/03/21 07:51 UPSETS STOMACH Medications Home Medications Medication Instructions Recorded Confirmed Last Taken propylene glycol 0.6 % eye drops 1 drops OP BID PRN 05/30/19 07/03/21 07/02/21 (Systane Balance) escitalopram oxalate 20 mg tablet 20 mg PO QAM 06/29/21 07/03/21 07/02/21 lisinopril 5 mg tablet 5 mg PO QAM 06/29/21 07/03/21 07/02/21 oxybutynin chloride 5 mg tablet 5 mg PO QAM 06/29/21 07/03/21 Unknown simvastatin 20 mg tablet 10 mg PO QAM 06/29/21 07/03/21 07/02/21 trazodone 100 mg tablet 100 mg PO HS 06/29/21 07/03/21 07/02/21 Active Medications Generic Name Dose Route Start Last Admin Trade Name Freq PRN Reason Stop Dose Admin Cephalexin HCl 250 mg 07/03/21 17:00 07/04/21 09:27 Cephalexin 250 Mg Cap PO 07/08/21 16:59 Not Given QID HENRY Hydralazine HCl 10 mg 07/03/21 10:31 07/03/21 11:28 Hydralazine Hcl 20 Mg/Ml Vial IV 08/02/21 10:30 10 mg Q8 PRN Administration hypertension sbp >180 Sodium Chloride 1,000 mls @ 90 mls/hr 07/03/21 10:05 07/04/21 10:55 Nss 1000ml IV 08/02/21 10:04 90 mls/hr .[id number] HENRY Infusion NPO Date Last Intake of Fluids: 07/03/21 Time Last Intake of Fluids: 18:00 Last Intake of Fluids Comment: small sip with medictions Date Last Intake of Solids: 07/02/21 Time Last Intake of Solids: 15:00 Past Medical History Medical History Depression (emotion) Dysphagia History of DVT of lower extremity roughly 15yrs ago--unknown cause, no blood thinners HTN (hypertension) Hypercholesteremia Osteoporosis Pneumonia (2015) Past Family History Family History Father Prostate cancer Kidney disease Mother Heart disease Brother Diabetes Kidney disease Other No family history of adverse response to anesthesia Past Surgical History Surgical History H/O total knee replacement left History of bilateral cataract extraction History of dilatation and curettage History of esophagogastroduodenoscopy (EGD) History of left hip replacement History of open reduction and internal fixation (ORIF) procedure left tibia fx--hardware removed History of tooth extraction all teeth removed Social History Smoking Status: Never smoker Do You Dip or Chew Tobacco: No Hx Alcohol Use: No Hx Substance Use: No substance use type: does not use Physical Exam Vital Signs Last Vital Signs Temp 37.1 C 07/04/21 11:39 Pulse 106 H 07/04/21 11:39 Resp 18 07/04/21 11:39 BP 180/97 H 07/04/21 11:39 Pulse Ox 97 07/04/21 11:39 Testing Laboratory Results 07/04/21 05:50 07/04/21 05:50 Electrocardiogram Date: 07/03/21 Normal sinus rhythm Normal ECG When compared with ECG of 01-FEB-2015 07:56, T wave inversion no longer evident in Anterior leads
[2021-07-04] MEDS ORDERED: ONDANSETRON INJ 2 MG/ML 2 ML VIAL ONE (12:45)
[2021-07-04] MEDS ORDERED: SUCCINYLCHOLINE CHLORIDE 20 MG/ML 10 ML VIAL IV ONE (12:45)
[2021-07-04] MEDS ORDERED: DEXAMETHASONE SOD INJ 4 MG/ML VIAL ONE (12:45)
[2021-07-04] MEDS ORDERED: ESMOLOL HCL INJ 10 MG/ML 10ML VIAL IV ONE (12:45)
[2021-07-04] MEDS ORDERED: LIDOCAINE 2% 2 ML VIAL/AMP(20MG/ML) INFIL ONE (12:45)
[2021-07-04] MEDS ORDERED: PROPOFOL IV EMULSION 10 MG/ML 20 ML VIAL IV ONE (12:45)
--- NOTE | 2021-07-04 13:05 | GI REPORT ---
Patient Name: Jennifer Patel Procedure Date: 07/04/2021 12:22 PM Date of : 1940 Admit Type: Inpatient Age: 80 Gender: Female Attending MD: Preston Butts MD Procedure: Upper GI endoscopy Providers: Preston Butts MD Referring MD: Troy Lewis Indications: Foreign body in the esophagus Medicines: Monitored Anesthesia Care Complications: No immediate complications. Estimated blood loss: None. Estimated Blood Loss: Estimated blood loss: none. Procedure: Pre-Anesthesia Assessment: - Prior Anticoagulants: The patient has taken no previous anticoagulant or antiplatelet agents. - ASA Grade Assessment: III - A patient with severe systemic disease. After obtaining informed consent, the endoscope was passed under direct vision. Throughout the procedure, the patient's blood pressure, pulse, and oxygen saturations were monitored continuously. The Endoscope was introduced through the mouth, with the intention of advancing to the duodenum. The scope was advanced to the upper third of the esophagus before the procedure was aborted. Medications were given. The upper GI endoscopy was accomplished without difficulty. The patient tolerated the procedure well. Findings: Food was found in the upper third of the esophagus. Removal of food was accomplished. Estimated blood loss: none. A non-bleeding diverticulum with a large opening and no stigmata of recent bleeding was found in the upper third of the esophagus. Unclear if this was a zenker's diverticulum or a different type. Unable to advance scope beyond this diverticulum further down the esophagus, procedure aborted. Impression: - Food in the upper third of the esophagus. Removal was successful. 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 Recommendation: - [facility] to [facility] care. - full liquid diet today and going forward. -follow up with Dr. Avalos for definitve repair of zenker's diverticulum, his office will schedule this -can d/c home on full liquid diet (strict) later today if stable Preston Butts MD 07/04/2021 1:04:54 PM This report has been signed electronically. Note Initiated On: 07/04/2021 12:22 PM Number of Addenda: 0 I attest to the content of the Intraoperative Record and orders documented therein, exceptions below {[id number]}
--- NOTE | 2021-07-04 13:06 | Procedure Note ---
Procedure Note Date of Service July 04, 2021 Note Gi brief procedure note EGD findings: food bolus in esophagus removed, large zenkers diverticulum causing obstruction, unable to advance scope beyond it. Recs: full liquid diet follow up with Dr. Avalos for EGD with repair of diverticulum/definitive management, his office will schedule this supportive care can d/c home later today if stable Preston Butts MD Gastroenterology Coding
--- NOTE | 2021-07-04 13:24 | Anesthesiology Progress Note ---
Date of Service July 04, 2021 Anesthesia Post Procedure Vital Signs Vital Signs: Temp Pulse Pulse Resp BP Pulse Ox 07/04/21 13:15 87 20 142/68 H 98 07/04/21 13:09 36.9 C 89 14 129/81 97 07/04/21 11:39 37.1 C 106 H 18 180/97 H 97 07/04/21 07:10 37.2 C 83 16 169/69 H 95 07/03/21 22:48 37.1 C 81 16 163/70 H 96 07/03/21 15:33 36.9 C 84 18 168/89 H 95 Transfer of Care Handoff Completed per policy Notes Mental Status: alert / awake / arousable and participated in evaluation Patient Amnestic to Procedure: Yes Nausea / Vomiting: adequately controlled Pain: adequately controlled Airway Patency, RR, SpO2: stable & adequate BP & HR: stable & adequate Hydration State: stable & adequate Anesthetic Complications: no major complications apparent and Pt Satisfied with anesthetic care
--- NOTE | 2021-07-04 13:28 | Electrocardiogram Report ---
Test Reason : Blood Pressure : / mmHG Vent. Rate : 087 BPM Atrial Rate : 087 BPM P-R Int : 192 ms QRS Dur : 070 ms QT Int : 390 ms P-R-T Axes : 060 001 011 degrees QTc Int : 469 ms Normal sinus rhythm Nonspecific T wave abnormality Anterior leads Abnormal ECG When compared with ECG of 01-FEB-2015 07:56, T wave inversion no longer evident in Anterior leads Confirmed by Narendra Howard ([id number]) on 07/04/2021 1:27:26 PM Referred By: Troy Lewis Confirmed By:Narendra Howard
--- NOTE | 2021-07-04 15:49 | Discharge Summary ---
Date of Service July 04, 2021 Admission HPI Per Admitting Provider 80-year-old female presented for EGD with Dr. Butts 07/03 for complaints of dysphagia to solid foods for several years which she admits has been worse over the past year. No issues with solids, but mainly liquids. No pain. Has had some regurgitation with this but has been able to clear secretions without issue. No shortness of breath or chest pain. She does have weight loss- 2lb in the year at her PCP visit but she states this had been due to decreased ability for oral intake. EGD performed today showed food within the esophagus discussion was had with the GI provider and decision made to admit the patient, make n.p.o. obtain CT soft tissue neck for further evaluation and perform EGD tomorrow in the OR under general anesthesia. Patient medical history significant for hypertension, hypercholesterolemia, urinary frequency and urgency (but states she does not take oxybuytnin anymore), anemia. Discussed obtaining CXR and EKG-pre-op. She is nervous/apprehensive about undergoing anesthesia. Hx DVT -- 1 after last child and 1 requiring 6 months of medication she was apprehensive about taking (discovered to be Eliquis) as she was waiting in [place] very immobile awaiting cardiac surgery. No recent fevers, chills, chest pain, shortness of breath, abd pain, nausea, vomiting or other symptoms at this time. Questions/concerns addressed/ Admission Exam Per Admitting Provider well developed, appears stated age, no acute distress eyes anicteric, GUCCI, drying to eyes appreciated with tearing to R eye ENT; dry mm, no tracheal deviation Resp; CTAB, no w/c/r or accessory muscle use. on room air CV: RRR, no r/m/g, no edemam no calf edema GI: +BS, soft, non-tender, no organomegaly : no melton No lymphadenopathy appreciated Skin: cool, dry, general pallor, cap refill <3 seconds MSK: moves all extremities pSYCH: AOx3, anxious affect Principal Diagnosis Dysphagia, Esophageal Diverticulum Discharge Exam well developed, appears stated age, no acute distress eyes anicteric, GUCCI, drying to eyes appreciated with tearing to R eye ENT; dry mm improving, no tracheal deviation Resp; CTAB, no w/c/r or accessory muscle use. on room air CV: RRR, no r/m/g, no edema or calf tenderness to palpation GI: +BS, soft, non-tender, no organomegaly : no melton No lymphadenopathy appreciated Skin: cool, dry, general pallor, cap refill <3 seconds MSK: moves all extremities pSYCH: AOx3, anxious affect Discharge Data Allergies Allergy/AdvReac Type Severity Reaction Status Date / Time amoxicillin Allergy Mild nausea Verified 07/03/21 07:51 codeine AdvReac Mild STATES Verified 07/03/21 07:51 UPSETS STOMACH Consultations 07/03/21 10:05 Consult Gastroenterology Routine Procedures Performed Operation Date: 07/03/21 08:45 Actual Procedures p Esophagogastroduodenoscopy - Preston Butts MD Operation Date: 07/04/21 07:00 Actual Procedures p Esophagogastroduodenoscopy(Not Applicable) - Preston Butts MD Ordered Studies 07/03/21 10:05 CT soft tissue neck w con Routine Hospital Course (1) Dysphagia: Reported ongoing for several months. Had an EGD done 07/[address] Butts which had food impaction and recommendations for admission to perform an EGD in the OR Also obtain a CT neck soft tissue which showed 5.8 x 3.3 x 5 cm fluid and gas containing outpouching arising from the left lateral aspect of the cervical esophagus consistent with an esophageal diverticulum. This favors a [place] Jam ieson diverticulum although a Zenker's diverticulum could appear similar. This could account for the patient's symptoms. GI consulted Underwent EGD on 07/[address] Butts which showed food in the upper third of the esophagus with successful removal as well as a diverticulum in the upper third of the esophagus Recommend continuing a full liquid diet at discharge and to follow-up with Dr. 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 Well-controlled typically but noted high at last PCP appt due to emotional lability Reason all during admission and recommended that the patient check her blood pressures at home and if they remain elevated outside of the hospital setting that she should follow-up with her primary care about possibly increasing her antihypertensive agent and follow-up BP 158/76 prior to discharge Of note would avoid calcium channel sebastian hydrochlorothiazide given history of hypercalcemia on prior labs which were further investigated and did show a low vitamin D and was started on supplementation. PTH appropriately elevated (3) Hypercholesteremia: Simvastatin held while n.p.o. with patient at discharge (4) Pigmented skin lesion: Recently seen by PCP and recommendations for follow-up with dermatology as outpatient for excisional biopsy/punch biopsy for the investigation. No family history of skin cancers (5) Overactive bladder: Reports frequent urinary frequency and urgency and overactive bladder. Did not want follow-up with urology at most recent PCP office visit Continue oxybutynin 5 mg daily when able to take p.o. --> PATIENT DOES NOT TAKE THIS ANYMORE and this has been discontinued Likely w cystitis --. alpha strep on multiple urine cx. no recent abx but endorsed frequency. --> started keflex and complete course. f/u pcp for clearance for total jeremiah tment 5 days (6) Food impaction of esophagus: on initial EGD repeat EGD for 07/04 with successful removal of food impaction (7) Cystitis: to complete short course keflex as above (8) Hypercalcemia: prior elevations 10.4 and 10.2 with normal albumin Vit D checked, slightly low and started supplementation has been continued at discharge PTH slightly elevated, appropriately Ca normal on AM labs Follow up PCP (9) Esophageal diverticulum: (10) Mild protein-calorie malnutrition: DVT PROPHYLAXIS -- no chemical given OR tomorrow (hx DVT x 2. 2nd to immobility and needed eliquis x 6 months after last one) Utilizing SCDs/zully hose while inpatient as chemical was held for procedure today. As patient being discharged no chemical prophylaxis ordered but if develops any lower extremity edema or pain would be concerned for possible DVT. Of note the DVT secondary to immobility was from sitting for several days in the hospital setting while her waiting for cardiac surgery Total Time Total Time Spent Total Time Spent (In Minutes): 65 Discharge Plan Discharge Items Patient Disposition: Home - Self-Care Reason For Visit: dysphagia Discharge Diagnosis: Dysphagia, Esophageal Diverticulum Goals: You have been hospitalized for an acute medical problem. During your stay at [facility], we have made an effort to correct the problem that brought you to the hospital while keeping you as comfortable as possible. Medications were used to bring your condition under control and your discharge instructions will include directions for any medications you should take after leaving the hospital. Please make sure you see your Primary Care Provider as part of your follow up plan. Activity: Resume your previous activity Non-emergency contact: Primary Care Provider and [employer] Call non-emergency contact if: you have any medication questions, your symptoms worsen, your pain is concerning for you and you have a fever Follow-up/Referrals: Troy Lewis III, MD [Primary Care Provider] - 07/13/21 11:00 am Chava Avalos MD [Hospitalist] - Diet: Heart Healthy and Other - See Diet Comment Diet Comment: LIQUIDS ONLY!! Addtl Attending Provider Instructions: You have been hospitalized for dysphagia/difficulty swallowing. Outpatient EGD showed food in your esophagus and decision was made for admission and undergo EGD in the OR. A CAT scan of the soft tissue of her neck was performed which showed a pouching consistent with something called like it Zenker's diverticulum or other diverticulum/pouching which can be explanation for your difficulties with swallowing and this is best treated with surgery. Unfortunately, only Dr. Butts does not do this and recommendations were to follow-up with Dr. Avalos from [facility] and his phone number was provided to you to set up an appointment later this week to discuss surgical correction. Until that time you are to continue on a full liquid diet to avoid worsening dysphagia or obstruction. It is recommended to utilize boost or other protein shake like supplementation TWICE daily to help with protein during this time. During admission review of your previous labs with elevated calcium warranted vitamin D level to be checked which was low and you have been started on supplementation. Your urine from previous cultures also had bacteria in it and given your urinary symptoms with increased frequency decision was made to place you on Keflex which will be continued for total treatment 5 days (YOU HAVE 4 MORE DAYS) which will be 250 mg by mouth 4 times daily. Should follow-up with your primary care provider and consider repeat urine testing to ensure clearance. You should follow up with your primary care provider in 1 week to monitor your progress since hospitalization. As discussed, please continue to check blood pressure at home and if it continues to be elevate you may need increase to medications at your next visit in follow up. Please follow-up with Dr. Avalos from [facility] about surgical intervention and continued full liquid diet as discussed. If you develop any difficulty with liquids or clearing secretions prior to that please return to the emergency department along with any concerns for fever, chills, chest pain, shortness of breath or any other symptoms that are concerning. It has been a pleasure being part of the medical team providing for you while you have been in the hospital. Take care! Pending Studies at Discharge: No Stand-Alone Forms: My [facility] Medications and DC Order Prescriptions: New cholecalciferol (vitamin D3) 25 mcg (1,000 unit) Capsule 2,000 unit PO QAM 30 Days Qty: 60 RF: 0 Continued Systane Balance 0.6 % drops 1 drops OP BID PRN (Reason: Dry Eye(S)) RF: 0 trazodone 100 mg tablet 100 mg PO HS RF: 0 simvastatin 20 mg tablet 10 mg PO QAM RF: 0 lisinopril 5 mg tablet 5 mg PO QAM RF: 0 escitalopram oxalate 20 mg tablet 20 mg PO QAM RF: 0 Discontinued oxybutynin chloride 5 mg tablet 5 mg PO QAM RF: 0 Discharge Orders: Discharge Order (Routine); Ordered 07/04/21 Ordered By: Julisa Funes/Other Patient Handouts: ED Full Liquid Diet Admission Data Admit Date/Time: 07/03/21 10:37 Attending Provider: Jonn Harris Admit Provider: Jonn Harris Primary Care Provider: Troy Lewis III Other Providers: Preston Butts Other Interventions: Discharge Summary Assessment (RN) Last Done: 07/04/21 16:14 Supervising Physician Co-Signing Physician Notes Attending Attestation & Discharge Note- Pt seen/examined, chart reviewed, care plan d/w ERNA Felder. I agree w/ the phelps components of her discharge documentation. 80yo female who presented with progressive dysphagia for solids, malodorous breath, and recent weight loss. s/p EGD on day of admission by Dr Butts with food impaction and inability to advance the scope beyond this. Soft tissue neck CT showed concern for large esophageal diverticulum. Repeat EGD by Dr Butts today with removal of the impacted food. EGD showed a large diverticulum - likely to be Zenker's. Patient to d/c home on full liquids and will f/u with Dr Chava Avalos - [facility] - within 1 week to have repair of the diverticulum. gen - NAD, thin mouth - MMM neck - no JVD or mass heart - RRR, s1 s2, no murmur lungs - CTA b/l abd - soft NT ND BS+ ext - no edema Jonn Harris MD Coding Level of Care Code D/C DAY MANAGEMENT >30 MINS Diagnoses Dysphagia R13.10 HTN (hypertension) I10 Hypercholesteremia E78.00 Pigmented skin lesion L81.9 Overactive bladder N32.81 Food impaction of esophagus T18.128A Cystitis N30.90 Hypercalcemia E83.52 Esophageal diverticulum Q39.6 Mild protein-calorie malnutrition E44.1
[2021-07-04 17:14] VITALS: BP 159/79; PULSE 82; TEMP 98.1; O2SAT 93
[2021-07-05] MEDS ORDERED: CHOLECALCIFEROL 1,000 UNITS 25 MCG TAB PO SCH (09:00)
--- NOTE | 2021-07-11 12:27 | Coding Query ---
CODING QUERY To promote full compliance with coding requirements relating to patient care, provider participation is requested in all cases of forensic photographer uncertainty. Please assist us with the question(s) below: Coding Question(s): 1. The 07/04 H&P Addendum/Bridge Note by Vanesa Gaston PA-C and Preston Butts M.D. documents, "CT soft tissues of the neck indicates a 5.8 x 3.3 x 5 cm fluid and gas containing outpouching arising from the left lateral aspect of the cervical esophagus consistent with an esophageal diverticulum. This favors a Mil[place] Nancy diverticulum although a Zenker's diverticulum could appear similar", and the 07/04 EGD documents in the Findings, "A non-bleeding diverticulum with a large opening and no stigmata of recent bleeding was found in the upper third of the esophagus. Unclear if this was a zenker's diverticulum or a different type", and in the Recommendation, "-follow up with Dr. Avalos for definitve repair of zenker's diverticulum", and the 07/04 Procedure Note documents, "findings: food bolus in esophagus removed, large zenkers diverticulum causing obstruction, unable to advance scope beyond it", and the Discharge Summary documents, under Hospital Course,"Dysphagia: Reported ongoing for several months. Had an EGD done 07/[address] Butts which had food impaction and recommendations for admission to perform an EGD in the OR Also obtain a CT neck soft tissue which showed 5.8 x 3.3 x 5 cm fluid and gas containing outpouching arising from the left lateral aspect of the cervical esophagus consistent with an esophageal diverticulum. This favors a Milind Nancy diverticulum although a Zenker's diverticulum could appear similar. This could account for the patient's symptoms. GI consulted Underwent EGD on 07/[address] Butts which showed food in the upper third of the esophagus with successful removal as well as a diverticulum in the upper third of the esophagus Recommend continuing a full liquid diet at discharge and to follow-up with Dr. 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 s/p EGD on day of admission by Dr Butts with food impaction and inability to advance the scope beyond this. Soft tissue neck CT showed concern for large esophageal diverticulum. Repeat EGD by Dr Butts today with removal of the impacted food. EGD showed a large diverticulum - likely to be Zenker's.". Please Specify below, in your clinical opinion, regarding the esophageal diverticulum. ( x ) Likely Zenker's Diverticulum ( ) Likely [place] Nancy Diverticulum - Congenital ( ) Both Zenker's Diverticulum and/or possible Milind Nancy Diverticulum - congenital ( ) Other: Please Specify 2. Please Specify below, in your clinical opinion, the diagnosis most responsible for the Inpatient admission. ( ) Esophageal Diverticulum ( ) Food Impaction in the esophagus ( x ) Both Esophageal Diverticulum and Food Impaction in the esophagus are Equally responsible ( ) Other: Please Specify Physician's Response(s): Thank you Geovanna Ramos Principal Diagnosis: "that condition established after study, to be chiefly responsible for occasioning the admission of the patient to the hospital for care." Co-Existing Principal Diagnosis: "when two or more diagnoses equally meet the criteria for principal diagnosis as determined by the circumstances of admission, diagnostic work up, and/or therapy provided, and the Alphabetic Index, Tabular List, or another coding guideline does not provide sequencing direction, any one of the diagnoses may be sequenced first." "When the physician has documented what appears to be a current diagnosis in the body of the record, but has not included the diagnosis in the final diagnostic statement, the physician should be asked whether the diagnosis should be added." (Source Coding [facility] 2 QTR90. p3-4) MTDD
== END 2021-07-04 17:54 | disposition home or self-care (01) | DRG 394 ==
LOC: ENDO 07:37 → 3N 10:37

== ENCOUNTER 2023-05-22 09:24 | Observation (INO) ==
--- NOTE | 2023-05-03 14:24 | PAT Medication Instructions ---
Medication Instructions Date of Service May 03, 2023 Home Medications Medication Instructions Recorded lisinopril 5 mg tablet 5 mg PO QAM #90 tabs 07/11/22 alendronate 70 mg tablet (Fosamax) 70 mg PO ONCE 3 months #12 tabs 08/17/22 escitalopram oxalate 20 mg tablet 20 mg PO QAM #90 tabs 10/29/22 tetanus-diphtheria toxoids-Td 2 Lf 0.5 ml IM ONCE #0.5 mL 02/18/23 unit-2 Lf unit/0.5 mL IM suspension (TDVAX) trazodone 100 mg tablet 100 mg PO HS #90 tabs 05/02/23 propylene glycol 0.6 % eye drops (Systane Balance) 1 drops ophthalmic (eye) BID PRN Dry Eye(S) lisinopril 5 mg tablet 5 mg PO QAM alendronate 70 mg tablet (Fosamax) 70 mg PO ONCE 3 months escitalopram oxalate 20 mg tablet 20 mg PO QAM tetanus-diphtheria toxoids-Td 2 Lf unit-2 Lf unit/0.5 mL IM suspension (TDVAX) 0.5 ml IM ONCE cholecalciferol (vitamin D3) 50 mcg (2,000 unit) tablet (Vitamin D3) 50 mcg PO QAM omeprazole 20 mg capsule,delayed release 20 mg PO DAILY PRN Acid Reflux trazodone 100 mg tablet 100 mg PO HS ASK your prescriber and surgeon alendronate 70 mg tablet (Fosamax) 70 mg PO ONCE 3 months tetanus-diphtheria toxoids-Td 2 Lf unit-2 Lf unit/0.5 mL IM suspension (TDVAX) 0.5 ml IM ONCE DO NOT take the morning of surgery lisinopril 5 mg tablet 5 mg PO QAM cholecalciferol (vitamin D3) 50 mcg (2,000 unit) tablet (Vitamin D3) 50 mcg PO QAM Take morning of surgery With a small sip of water, OTHERWISE NOTHING TO EAT OR DRINK AFTER MIDNIGHT: propylene glycol 0.6 % eye drops (Systane Balance) 1 drops ophthalmic (eye) BID PRN Dry Eye(S) (if needed) escitalopram oxalate 20 mg tablet 20 mg PO QAM omeprazole 20 mg capsule,delayed release 20 mg PO DAILY PRN Acid Reflux (if needed) Take evening before surgery propylene glycol 0.6 % eye drops (Systane Balance) 1 drops ophthalmic (eye) BID PRN Dry Eye(S) (if needed) omeprazole 20 mg capsule,delayed release 20 mg PO DAILY PRN Acid Reflux (if needed) trazodone 100 mg tablet 100 mg PO HS Other Notes If you have any questions please call us at [phone] or [phone] or [phone] or [phone]
--- NOTE | 2023-05-10 09:45 | Anesthesiology Consultation ---
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 No COVID positive test result in the past 90 days noted. - Outpatient joint assessment: Pt currently scheduled for inpatient pathway. If surgeon requests review for outpatient joint pathway, patient is not recommended candidate for outpatient joint program from anesthesia standpoint based on available information. - PCP visit (02/17/23): "..As for her trazodone use, I would like her to to try to cut back to 50mg qhs and start pairing with an OTC melatonin 3mg supplement. I directed her ot take the latter 1 hour prior to intended bed time. Although not on beers lits, trazodone can cause dizziness and increased fall rate in elderly population.. As for her hyperlipemia, we discussed how statin use for primary prevention in patients over 75 years of age is not supported by current evidence base. She would like to discontinue at this time, which I am supportive of.. Depression (emotion).. chronic problem.. well controlled on lexapro 20mg daily, continue current therapy.. HTN (hypertension).. BP above goal in office today, however she has been taking sudafed for a sinusitis.. she reports home checks in 120s/70s.. continue current therapy with lisinopril 5mg daily.. Goal: BP < 130/80.. Familial hypocalciuric hypercalcemia.. recentm workup for hypercalcemia consist with this origin.. benign cause of hypercalcemia.. no further management.. Acid reflux.. continue current therapy with omeprazoel [sic]" Chart Review Chart Review: Acceptable Risk for Surgery and Patient seen in Pre Admission Testing Teaching & Discussion Pre-Anesthesia Teaching/Discussion Notes: Instructed NPO after midnight before surgery,except medications with 15 cc of water. Medication instructions provided according to the PAT guidelines. History Surgery Operation Date: 05/22/23 13:45 Proposed Procedures p Right Total Knee Arthroplasty - Esvin Nance MD Height/Weight Height: 5 ft 3 in Weight: 60.5 kg Allergies Allergy/AdvReac Type Severity Reaction Status Date / Time amoxicillin AdvReac Mild Nausea Verified 05/08/23 09:27 codeine AdvReac Mild Upset Verified 05/08/23 09:27 stomach Medications Home Medications Medication Instructions Recorded Confirmed Last Taken propylene glycol 0.6 % eye drops 1 drops ophthalmic (eye) BID PRN 05/30/19 05/02/23 07/02/21 (Systane Balance) Dry Eye(S) lisinopril 5 mg tablet 5 mg PO QAM #90 tabs 07/11/22 05/02/23 Unknown alendronate 70 mg tablet (Fosamax) 70 mg PO ONCE 3 months #12 tabs 08/17/22 05/02/23 Unknown escitalopram oxalate 20 mg tablet 20 mg PO QAM #90 tabs 10/29/22 05/02/23 Unknown tetanus-diphtheria toxoids-Td 2 Lf 0.5 ml IM ONCE #0.5 mL 02/18/23 02/18/23 Unknown unit-2 Lf unit/0.5 mL IM suspension (TDVAX) cholecalciferol (vitamin D3) 50 50 mcg PO QAM 05/02/23 05/02/23 Unknown mcg (2,000 unit) tablet (Vitamin D3) omeprazole 20 mg capsule,delayed 20 mg PO DAILY PRN Acid Reflux 05/02/23 05/02/23 Unknown release trazodone 100 mg tablet 100 mg PO HS #90 tabs 05/02/23 05/02/23 Unknown Past Medical History Medical History Depression (emotion) Female bladder prolapse Food impaction of esophagus Hx (2020) History of DVT of lower extremity 1970s after childbirth HTN (hypertension) Osteoarthritis Osteoporosis Exercise / Class Metabolic Activity II 4-5 Yardwork/Stairs/Walk up hill (one FS (no CP, no SOB)) Past Family History Family History Father Prostate cancer Kidney disease Mother Heart disease Brother Diabetes Kidney disease Other No family history of adverse response to anesthesia Denies family history of Ovarian cancer Myocardial infarction Breast cancer Colorectal cancer Past Surgical History Surgical History H/O total knee replacement left History of bilateral cataract extraction History of dilatation and curettage History of esophagogastroduodenoscopy (EGD) repaired diverticulum pouch History of left hip replacement History of open reduction and internal fixation (ORIF) procedure left tibia fracture (hardware removed) History of tooth extraction all teeth removed Past Anesthesia History No Hx of Anesthesia Complications and No Family Hx of Anesthesia Complications History of PONV No Hx of PONV and No Hx of Motion Sickness Social History Smoking Status: Never smoker Do You Dip or Chew Tobacco: No Hx Alcohol Use: No Hx Substance Use: No substance use type: does not use Review of Systems Patient denies chest pain, shortness of breath, dyspnea on exertion, fever, chills, cough, wheezing, palpitations. Physical Exam Vital Signs VITALS BP 155/80 P 76 TEMP 98.0 SP02 95%RA RESP 16 PHYSICAL Full cervical extension range of motion. Full TMJ range of motion. TMD 3 finger breaths Mallampati Score 2 Dentition: full dentures upper/lower Lungs: clear throughout to auscultation Cardiac: regular rate and rhythm, no murmurs noted Spine: normal Carotid arteries: negative bruit Extremities: no LE edema Lab Results Anesthesia Preop Results Results Anesthesia Widget: WBC 5.90 K/ul (4.8-10.8) 05/10/23 Hgb 13.4 g/dl (12.0-16.0) 05/10/23 Hct 40.9 % (37.0-47.0) 05/10/23 Plt 221 K/uL (130-400) 05/10/23 Na 138 mmol/L (136-145) 05/10/23 K 4.6 mmol/L (3.5-5.1) 05/10/23 Cl 104 mmol/L (98-107) 05/10/23 CO2 28 mmol/L (21-32) 05/10/23 BUN 16 mg/dl (6-23) 05/10/23 Creat 0.95 mg/dl (0.6-1.2) 05/10/23 Glucose Level 99 mg/dl (70-99(Fasting)) 05/10/23 PT 11.0 Seconds (9.0-12.0) 05/10/23 PTT 25.3 Seconds (21.0-31.0) 05/10/23 INR 1.0 (0.9-1.1) 05/10/23 Urine Color Yellow 05/10/23 Urine Appearance Cloudy (Clear) A 05/10/23 Urine pH 5.5 (4.5-7.5) 05/10/23 Urine Specific Thompson 1.010 (1.000-1.030) 05/10/23 Urine Protein Negative (Negative) 05/10/23 Urine Glucose (UA) Negative (Negative) 05/10/23 Urine Ketones Negative (Negative) 05/10/23 Urine Blood Negative (Negative) 05/10/23 Urine Nitrite Negative (Negative) 05/10/23 Urine Bilirubin Negative (Negative) 05/10/23 Urine Urobilinogen Negative (Negative) 05/10/23 Urine Leukocyte Esterase 2+ (Negative) H 05/10/23 Urine WBC (Auto) 10-30 /hpf (0-5) H 05/10/23 Urine RBC (Auto) 0-4 /hpf (0-4) 05/10/23 Urine Hyaline Casts (Auto) 1-5 /lpf (0-5) 05/10/23 Urine Epithelial Cells (Auto) >30 /lpf (0-5) H 05/10/23 Urine Bacteria (Auto) 2+ (Negative) H 05/10/23 Urine Yeast Not Reportable 05/10/23 Blood Type A Positive 05/10/23 Antibody Screen NEGATIVE 05/10/23 Testing Laboratory Results Osiris at surgeon's office made aware of abnormal UA* Electrocardiogram Date: 05/10/23 NSR at 78bpm. NS TWA. Chest X-Ray Date: 05/10/23 FINDINGS: Cardiac silhouette is mildly enlarged. Trace pleural effusions. Atherosclerosis of the aorta. Chronic interstitial coarsening. No pneumothorax or overt pulmonary edema. Eventration of the right hemidiaphragm. Degenerative changes of the shoulders and spine. Surgical clip projects over the left lower neck/upper chest. IMPRESSION: Cardiomegaly with chronic interstitial coarsening. Trace pleural effusions.
--- NOTE | 2023-05-21 10:47 | History & Physical Report ---
Date of Service May 21, 2023 Assessment & Plan (1) Primary osteoarthritis of right knee: Plan: Treatment options discussed with the patient. She has failed conservative measures and would like to proceed with surgery. Risks, benefits and alternatives to surgery including but not limited to infection, DVT, pain, stiffness, need for revision surgery, damage to blood vessels, damage to nerves, PE, , were discussed with the patient and they wish to proceed. Plan on right total knee arthroplasty scheduled for [facility] on 05/22/[address] Nance. Plan on outpatient PT post op. Plan on Xarelto 10mg daily post op for DVT prophylaxis. All questions answered. Patient will follow up post op. History of Present Illness Chief Complaint: Right knee pain Primary Care Provider: Mona Parra MD 82 yo female with PMHx significant for hx of DVT, HTN, who presents with ongoing right knee pain. Pain is interfering with her daily activity. She has failed conservative measures and would like to proceed with surgery. Patient denies headaches, sweats, fevers, chills, double vision, blurred vision, cough, sore throat, dysphagia, chest pain, sob, wheezing, n/v/d/c, numbness, tingling, fatigue, urinary symptoms, mood disorders. ROS positive for right knee pain and stiffness. Allergies Allergy/AdvReac Type Severity Reaction Status Date / Time amoxicillin AdvReac Mild Nausea Verified 05/08/23 09:27 codeine AdvReac Mild Upset Verified 05/08/23 09:27 stomach Home Medications Medication Instructions Recorded Confirmed Type propylene glycol 0.6 % eye drops 1 drops ophthalmic (eye) BID PRN 05/30/19 05/02/23 History (Systane Balance) Dry Eye(S) lisinopril 5 mg tablet 5 mg PO QAM #90 tabs 07/11/22 05/02/23 Rx alendronate 70 mg tablet (Fosamax) 70 mg PO ONCE 3 months #12 tabs 08/17/22 05/02/23 Rx escitalopram oxalate 20 mg tablet 20 mg PO QAM #90 tabs 10/29/22 05/02/23 Rx tetanus-diphtheria toxoids-Td 2 Lf 0.5 ml IM ONCE #0.5 mL 02/18/23 02/18/23 Rx unit-2 Lf unit/0.5 mL IM suspension (TDVAX) cholecalciferol (vitamin D3) 50 50 mcg PO QAM 05/02/23 05/02/23 History mcg (2,000 unit) tablet (Vitamin D3) omeprazole 20 mg capsule,delayed 20 mg PO DAILY PRN Acid Reflux 05/02/23 05/02/23 History release trazodone 100 mg tablet 100 mg PO HS #90 tabs 05/02/23 05/02/23 Rx Past Med/Surg History Medical History Depression (emotion) Female bladder prolapse Food impaction of esophagus Hx (2020) History of DVT of lower extremity 1970s after childbirth HTN (hypertension) Osteoarthritis Osteoporosis Surgical History H/O total knee replacement left History of bilateral cataract extraction History of dilatation and curettage History of esophagogastroduodenoscopy (EGD) repaired diverticulum pouch History of left hip replacement History of open reduction and internal fixation (ORIF) procedure left tibia fracture (hardware removed) History of tooth extraction all teeth removed Family History Father Prostate cancer Kidney disease Mother Heart disease Brother Diabetes Kidney disease Other No family history of adverse response to anesthesia Denies family history of Ovarian cancer Myocardial infarction Breast cancer Colorectal cancer Social History Smoking Status: Never smoker Second Hand Exposure: No; Do You Dip or Chew Tobacco: No; Hx Alcohol Use: No Hx Substance Use: No Preferred Language: Setswana Communication Ability: Effective Hearing Ability: Normal Cancer Registry Manager Required: No Beliefs That Will Affect Care: None marital status: Current Living Situation: Alone current occupational status: other 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 [employer] Feels Safe at Home: Yes Safety Concerns: Feels Safe At This Time Childhood Exposure to Second-Hand Smoke: No Dental Care, Regularly: Yes Physical Activity Frequency: 5-6 Times per Week Seatbelt Use: always Sunscreen Use: No Assistive Devices: Denture - Upper, Denture - Lower and Hearing Aid - Bilateral Review of Systems All systems reviewed & are unremarkable except as noted in HPI & below Physical Exam Constitutional: well developed and well nourished; no acute distress Eyes: PERRL, conjunctivae normal, anicteric sclerae ENMT: external ear and nose normal, oropharynx normal Neck: trachea midline, no thyromegaly Respiratory: normal respiratory effort, lungs clear to auscultation Cardiovascular: RRR, no murmur, no edema Musculoskeletal: Right knee: Varus alignment. Mild effusion. Medial joint line tenderness. Positive Miguel's, stable to valgus and varus stress. ROM 0-115 degrees. Skin: no rashes, warm and dry Neurologic: patellar DTR's 2+ bilat, sensation intact Psychiatric: A+Ox3, euthymic affect Results & Data Diagnostic Findings X-rays of the right knee demonstrate that the medial compartment has grade 4 bone on bone. There is subchondral sclerosis and medial compartment osteophytes. There is also moderately advanced patellofemoral osteoarthritis, mainly medial patellofemoral joint, with joint space narrowing there and osteophytes. She does have some osteopenia. The left knee has a cemented total knee replacement, with intact and well-aligned components, with a stem on the tibial side.
[~2023-05-22 09:24] MED LIST changes: +ACETAMINOPHEN 500 MG TAB PO SCH; -ASPI81TA28 PO; -ATV/2 PO; -BENZ100C84 PO; +BUPIVACAINE 0.5 % 5 MG/1 ML PF 10ML VIAL ONE; +CeleBREX 200 MG CAP PO SCH; +EPINEPHrine INJ 1 MG/ML AMP ONE; -ESCI1TAB10 PO; +FAMOTIDINE 20 MG TAB PO SCH; -FLNIN/ NAE; +GABAPENTIN 300 MG CAP PO SCH; -LCTX PO; -LISI-729 PO; +LR 500ML BOLUS, THEN 15ML/HR IV SCH; +LR 60ML/HR IV SCH; -LVQ750 PO; +METOCLOPRAMIDE HCL 10 MG TABLET PO SCH; -POLYSOL4 OPB; -PRLSR20 PO; +ROPIVACAINE 0.5% 5 MG/ML 30 ML VIAL ONE; +ROPIVACAINE 0.5% HCL/PF 150 MG, BUPIVACAINE 0.75% MPF 20 ML, EPINEPHrine 30MG/30ML (OR ... INSTIL SCH; -SIMV20TA2 PO; +TRANEXAMIC ACID 1,000 MG **IV Intra-op IV SCH; +TRANEXAMIC ACID 1,000 MG **IV Pre-op IV SCH; -TRAZ-162 PO; +ceFAZolin 2000MG 2,000 MG/15 ML SYR IV SCH; +dexAMETHasone 4 MG TAB PO SCH
--- NOTE | 2023-05-22 09:46 | History & Physical Bridge Note ---
Date of Service May 22, 2023 History & Physical Bridge Note I have examined the patient, reviewed the History & Physical and in the interval since the performance of the History & Physical I have noted the following changes of clinical significance: no changes noted
[2023-05-22] MEDS ORDERED: ORTHO JOINT ANESTHETIC ONE (10:26)
[2023-05-22] MEDS ORDERED: fentaNYL citrate PF 100 MCG/2 ML VIAL ONE (10:57)
--- NOTE | 2023-05-22 13:13 | Operative Report ---
Post Operative Report Pre & Post Diagnosis Operation Date: 05/22/23 11:00 Pre-Op Diagnosis: Primary osteoarthritis of right knee Post-Op Diagnosis: Primary osteoarthritis of right knee I identified the patient and participated in the time-out.: Yes Procedure Operation Date: 05/22/23 11:00 Actual Procedures p Right Total Knee Arthroplasty(Right), wanda and Acticoat superficial wound VAC application - Esvin Nance MD Surgeon Esvin Nance MD Chief Learning Officer Blas UMANZOR Estimated Blood Loss 5 Findings Consistent with Post-Op Diagnosis Specimens bone cuts Drains 2 Hemovac Anesthesia Type MAC Spinal Regional Complications none Disposition Disposition: Recovery Room Indications 82-year-old female with end-stage right knee osteoarthritis medial compartment and patellofemoral joint. Prior left knee replacement in the past. Description of Procedure Patient taken to the operating room the size under Spinal MAC regional block anesthesia. Patient was placed supine on the operating table. A pneumatic tourniquet was placed about the right upper thigh. The right lower extremity was prepped and draped in sterile fashion. Knee exam demonstrated varus knee no pseudolaxity good range of motion mild effusion. The leg was elevated exsanguinated with an Esmarch bandage and pneumatic tourniquet was raised to 275 millimeters of mercury. Skin incised sharply in longitudinal fashion. Subcutaneous flaps elevated. Incision was made through the medial retinaculum extending up in the mid third of the quadriceps tendon and down to the medial tibial tubercle. Intra-articular findings demonstrated knee compartment and patellofemoral osteoarthritis [id number] medial compartment and grade 4 patellofemoral osteoarthritis. The [email or web address].[email or web address] triathlon total knee arthroplasty system was used. To expose the knee the infrapatellar fat pad was resected. The meniscal remnants and cruciate ligaments were resected. The anterior fat pad over the femur in the area of the anterior flange of the femoral component was resected. Lateral synovial bands release. The femur was exposed. An intramedullary drill hole was made into the canal. A guide dean was placed. Distal femoral cutting guide was adjusted to resect a 5 degree valgus cut with 8 millimeters distal femur resected. The knee was extended and a subperiosteal peel lateral release was performed around the patella. Patella width was measured and width was reproduced using a freehand cut technique and 33 x 9 symmetrical patella component. The 3 drill holes were made and the excess lateral facet was beveled off to prevent any impingement. Attention was taken back to the femur which was exposed with retractors and the femoral sizing guide was pinned in position. The drill holes were placed in 3 of external rotation to match epicondylar axis. Femur sized for a 5 component. The 4-in-1 cutting block was placed and then the anterior posterior and chamfer cuts are made. The tibia was then subluxed. The external tibial cutting guide was just to make a perpendicular cut to the long axis of the tibia below the most deficient bone loss side. A lamina production controller was used and the flexion extension gaps were balanced. a medial, posterior medial release was performed. All posterior osteophytes removed. All meniscal remnants were resected. The tibia exposed and the trial tibial component size 4 was externally rotated in line with the tibial tubercle and pinned in position. The punch for stem was used. The notch cutting device was centered appropriately and the femoral notch cut was made. The femoral trial was inserted. Trial tibial inserts were placed and size 11 gave balanced ligaments through flexion and extension. Patella tracking was assessed. The patella tracked centrally. The trial components were then removed and the orthomix anesthetic cocktail was injected per protocol. The knee was then copiously irrigated with pulsatile lavage saline solution. Final components were then cemented with Simplex cement. Final components were Coleen triathlon size right posterior stabilized femoral component, a size 4 tibial component, a size 4 x 11 mm X.3 polyethylene tibial insert, X.3 polyethylene 33 x 9 mm symmetrical patella. After the cement cured the Betadine soak was used for 3 minutes. Further pulsatile lavage irrigation was then performed and 2 Hemovac drains were brought out laterally. The quadriceps tendon and medial retinaculum were closed with figure of 8 #1 Vicryl sutures. The knee was taken through full range of motion and the repair was secure. Knee range of motion was 0 through 135 degrees. The subcutaneous tissues were closed with 2-0 Vicryl sutures. Skin was closed with Keshawn. Sterile dressings were applied. The patient tolerated the procedure well. Blas UMANZOR was my physician water quality assistant who participated as assistant superintendent for curriculum and was involved in all aspects of the procedure including patient positioning prepping and draping,leg positioning ,soft tissue retraction and instrument management and participated in the closing application of wanda and Acticoat superficial wound VAC and will participate in postoperative care of the patient. The patient tolerated the procedure well. I attest to the content of the Intraoperative Record and any orders documented therein. Any exceptions are noted below.
[2023-05-22] MEDS ORDERED: ATROPINE SULFATE 0.1 MG/ML 10ML SYR IV PRN (13:57)
[2023-05-22] MEDS ORDERED: ePHEDrine sulfate 50 MG/ML AMP IV PRN (13:57)
--- NOTE | 2023-05-22 14:41 | Anesthesiology Progress Note ---
Date of Service May 22, 2023 Anesthesia Post Procedure Vital Signs Vital Signs: Temp Pulse Pulse Resp BP Pulse Ox O2 Del Method 05/22/23 14:25 36.4 C L 83 16 151/77 H 94 Room Air 05/22/23 14:15 90 20 165/77 H 94 Room Air 05/22/23 14:05 94 H 21 163/73 H 98 Room Air 05/22/23 13:54 36 C L 91 H 21 157/72 H 100 Oxymask 05/22/23 09:49 36.9 C 85 18 96 Room Air O2 Flow Rate 05/22/23 14:25 05/22/23 14:15 05/22/23 14:05 05/22/23 13:54 5 05/22/23 09:49 Transfer of Care Handoff Completed per policy Notes Mental Status: alert / awake / arousable Patient Amnestic to Procedure: Yes Nausea / Vomiting: adequately controlled Pain: adequately controlled Airway Patency, RR, SpO2: stable & adequate BP & HR: stable & adequate Hydration State: stable & adequate Neuraxial Anesthesia: was administered and sensory block is resolving Anesthetic Complications: no major complications apparent
[2023-05-22] MEDS ORDERED: bisacodyL 10 MG SUPP PR PRN (14:44)
[2023-05-22] MEDS ORDERED: HYDROmorphone INJ 0.5 MG/0.5 ML SYR IV PRN (14:44)
[2023-05-22] MEDS ORDERED: MAGNESIUM HYDROXIDE SUSP 30 ML UDC PO PRN (14:44)
[2023-05-22] MEDS ORDERED: SODIUM CHLORIDE 0.9% 1000ML 1,000 ML IV SCH (14:44)
[2023-05-22] MEDS ORDERED: NALOXONE HCL 0.4 MG/1 ML VIAL/CARP IV PRN (14:44)
[2023-05-22] MEDS ORDERED: oxyCODONE HCL IR 5 MG TAB (IMMEDIATE RELEASE) PO PRN (14:44)
[2023-05-22] MEDS ORDERED: METOCLOPRAMIDE HCL INJ 5 MG/ML 2 ML VIAL IV PRN (14:44)
[2023-05-22] MEDS ORDERED: ONDANSETRON INJ 2 MG/ML 2 ML VIAL IV PRN (14:44)
--- NOTE | 2023-05-22 14:51 | XRay Report ---
TWO VIEWS RIGHT KNEE CLINICAL HISTORY: Postoperative examination. FINDINGS: AP and crosstable lateral portable views of the right knee are obtained. A right knee arthr oplasty is in near anatomic alignment. There has been undersurface remodeling of the patella. No acut e fracture is seen. There are expected postoperative changes around the knee including skin clips, a surgical drain, soft tissue edema, and subcutaneous gas. IMPRESSION: Expected postoperative changes status post right knee arthroplasty. No acute fracture is seen. ACT 112: Negative or not required by law. Electronically signed by: Stephon Tay M.D. 05/22/2023 2:50 PM
[2023-05-22] MEDS ORDERED: PANTOprazole 40 MG TAB PO PRN (15:17)
[2023-05-22] MEDS ORDERED: ARTIFICIAL TEARS OP OINT 3.5 GM TUBE OP PRN (15:20)
[2023-05-22] MEDS: DOCUSATE SODIUM 100 MG CAP PO SCH (20:11)
[2023-05-22] MEDS: ceFAZolin 1000MG 1,000 MG/7.5 ML SYR IV SCH (20:15)
[2023-05-22] MEDS ORDERED: traZODone HCL 100 MG TAB PO SCH (21:00)
[2023-05-22] MEDS ORDERED: SENNA 8.6 MG TAB PO SCH (21:00)
[2023-05-22] MEDS: ACETAMINOPHEN 500 MG TAB PO SCH (21:55)
[2023-05-23] MEDS: ceFAZolin 1000MG 1,000 MG/7.5 ML SYR IV SCH (05:22)
[2023-05-23] MEDS: ACETAMINOPHEN 500 MG TAB PO SCH (05:22)
[2023-05-23 06:42] LABS: Hemoglobin 10.7 g/dl (12.0-16.0); Mean Corpuscular Hemoglobin 28.7 pg (25.0-34.0); Mean Corpuscular Hgb Conc 33.4 g/dL (32.0-36.0); Mean Corpuscular Volume 85.8 fL (80.0-100.0); Mean Platelet Volume 11.9 fL (9.4-12.4); Platelet Count 188 K/uL (130-400); RDW Coefficient of Variation 13.5 % (11.5-14.5); RDW Standard Deviation 42.3 fL (36.4-46.3); Red Blood Count 3.73 M/uL (4.20-5.40); White Blood Count 15.85 K/ul (4.8-10.8)
[2023-05-23 06:49] LABS: BUN Creatinine Ratio 26.6 (10-20); Calcium 9.8 mg/dl (8.6-10.3); Creatinine Clr Calc Pharmacy 38.2 ml/min; Est GFR (African American) 65.5 ml/min; Est GFR (Non-African American) 56.5 ml/min; Magnesium 1.7 mg/dl (1.7-2.4); Potassium 4.8 mmol/L (3.5-5.1)
--- NOTE | 2023-05-23 07:20 | Orthopedic Progress Note ---
Date of Service May 23, 2023 Assessment & Plan (1) Primary osteoarthritis of right knee: Plan: Postop day #1 right total knee arthroplasty -Pain management as written -PT/OT -DVT prophylaxis: SCDs, teds, Xarelto 10 mg daily -AM labs: Hemoglobin 10.7 acute blood loss anemia due to surgical loss versus dilutional. Leukocytosis likely reactive due to surgical stress versus perioperative steroids. Patient is asymptomatic. -Discharge planning: Plan on discharge home with outpatient therapy. Plan on discharge home likely today. Admission and Anticipated Discharge Date Admission Date: May 22, 2023 Subjective Patient is postop day #1 right total knee arthroplasty. She is doing well this morning. Minimal pain. Has been ambulating well. No current complaints. Denies chest pain, shortness of breath, nausea/vomiting/diarrhea, headaches or dizziness. Review of Systems Review of Systems: All systems reviewed & are unremarkable except as noted in Subjective Physical Exam Physical Exam: Right knee: Dressing is clean, dry, intact. Toes are mobile with good dorsiflexion. No calf tenderness. Able to straight leg raise. Distally neurovascular status and sensation is grossly intact. Constitutional: WD/WN, vitals as above Results & Data Vital Signs (Past 12 Hours) Vital Signs Temp Pulse Resp BP Pulse Ox O2 Del Method 05/23/23 03:18 36.6 C 68 18 155/80 H 98 Room Air 05/22/23 21:57 36.7 C 86 18 163/79 H 96 Room Air Laboratory Results Lab Results 05/23/23 05/23/23 05/23/23 Range/Units 05:34 05:34 05:34 WBC 15.85 H (4.8-10.8) K/ul RBC 3.73 L (4.20-5.40) M/uL Hgb 10.7 L (12.0-16.0) g/dl Hct 32.0 L (37.0-47.0) % MCV 85.8 (80.0-100.0) fL MCH 28.7 (25.0-34.0) pg MCHC 33.4 (32.0-36.0) g/dL RDW Std Deviation 42.3 (36.4-46.3) fL RDW Coeff of Robin 13.5 (11.5-14.5) % Plt Count 188 (130-400) K/uL MPV 11.9 (9.4-12.4) fL Sodium 137 (136-145) mmol/L Potassium 4.8 (3.5-5.1) mmol/L Chloride 108 H (98-107) mmol/L Carbon Dioxide 25 (21-32) mmol/L Anion Gap 4 (3-11) BUN 25 H (6-23) mg/dl Creatinine 0.94 (0.6-1.2) mg/dl Est Cr Clr Drug Dosing 38.2 ml/min Est GFR ( Amer) 65.5 ml/min Est GFR (Non-Af Amer) 56.5 ml/min BUN/Creatinine Ratio 26.6 H (10-20) Glucose 98 (70-99(Fasting)) mg/dl Calcium 9.8 (8.6-10.3) mg/dl Ionized Calcium (1.12-1.32) mmol/L Magnesium 1.7 (1.7-2.4) mg/dl Albumin 3.4 (3.4-5.0) gm/dl 25-OH Vitamin D Total 41.8 (30-100) ng/ml PTH Intact (12.0-88.0) pg/ml 05/23/23 05/23/23 Range/Units 05:34 05:34 WBC (4.8-10.8) K/ul RBC (4.20-5.40) M/uL Hgb (12.0-16.0) g/dl Hct (37.0-47.0) % MCV (80.0-100.0) fL MCH (25.0-34.0) pg MCHC (32.0-36.0) g/dL RDW Std Deviation (36.4-46.3) fL RDW Coeff of Robin (11.5-14.5) % Plt Count (130-400) K/uL MPV (9.4-12.4) fL Sodium (136-145) mmol/L Potassium (3.5-5.1) mmol/L Chloride (98-107) mmol/L Carbon Dioxide (21-32) mmol/L Anion Gap (3-11) BUN (6-23) mg/dl Creatinine (0.6-1.2) mg/dl Est Cr Clr Drug Dosing ml/min Est GFR ( Amer) ml/min Est GFR (Non-Af Amer) ml/min BUN/Creatinine Ratio (10-20) Glucose (70-99(Fasting)) mg/dl Calcium (8.6-10.3) mg/dl Ionized Calcium 1.36 H (1.12-1.32) mmol/L Magnesium (1.7-2.4) mg/dl Albumin (3.4-5.0) gm/dl 25-OH Vitamin D Total (30-100) ng/ml PTH Intact 85.8 (12.0-88.0) pg/ml
--- NOTE | 2023-05-23 07:41 | Hospitalist Consultation ---
Date of Consultation May 23, 2023 Assessment & Plan (1) Primary osteoarthritis of right knee: POD# 1 s/p Right Total Knee Arthroplasty(Right), wanda and Acticoat superficial wound VAC application - Esvin Nance MD EBL 5cc WBC elevation likely 2nd to steroids with surgery. Afebrile. Hgb 13.4--> 10.7 on repeat labs, suspect acute blood loss from surgery as well as dilutional component with IVF ordered by primary service Pain control, bowel regimen, PT/OT per primary service DVT proph: Xarelto 10mg daily (2) HTN (hypertension): BP stable, BUN slightly elevated w/ normal Cr. Eating/drinking, no significant dehydration on exam or symptoms lightheaded/dizziness and will resume lisinopril. BP stable 129/69 (3) Osteoporosis: noted, following w/ PCP Noting prior elevations in calcium, however recent check normal. Prior elevated ionized calcium, serum Ca, PTH normal high. 24 hour urine calcium low. Per PCP notes, familial hypocalciuric hypercalcemia. Repeated labs w/ normal Vit D (on oral supplementation, instructed to increased intake goal at home, fosamax therapy as well), PTH 85.8, ionized Ca slightly elevated 1.36. Calcium 9.8. Albumin normal Not on any HCTZ/diuretics which would contribute either. Discussed w/ patient and daughter and they would like endo ref as outpatient just for second opinion to see if possible FHH vs benign cause. Consult placed for event marketing representative to arrange at discharge F/u PCP (4) Familial hypocalciuric hypercalcemia: as above, ref to endo for completeness (5) Acid reflux: continue PPI (6) Hypercholesteremia: not on meds, most recent panel acceptable Plan Thank you for allowing hospitalist service to participate in the care of Ms Patel. Hospitalist service will sign off at this time, stable for discharge from medicine standpoint. Please call with any questions/concerns. Supervising Physician Co-Signing Physician Notes The patient was not seen by me. She had left the hospital prior to my rounding. The chart was reviewed. Case discussed with ERNA Paredes. Agree with assessment and plan History of Present Illness Reason for Consultation: medical management Requesting Physician: Dr Nance Attending Physician: Esvin Nance MD History of Present Illness 82yo female with PMHx significant for HTN, HLD, osteoporosis, reflux, hx DVT after childbirth in 1970s, hypercalcemia presented for RIGHT TKA with Dr Nance on 05/22. Patient evaluated in room 306, daughter at bedside. Had been up and walking with therapy, doing well.Pain controlled. No CP/SOB, fever/chills, abdominal pain or nausea at present. Planning for discharge today. Discussed prior elevated Ca levels/labs, possible ref to Endo outpatient just to be sure nothing else going on. Hx osteoporosis but no known history of kidney stones/etc. Patient states she was seen many years ago but unsure who, daughter and patient agreeable to referral outpatient. Using Xarelto for DVT proph given hx DVT. Discussed avoiding NSAIDs while on xarelto and monitoring for any bleeding. Daughter/patient stated they were unaware of avoiding NSAIDs but demonstrated understanding after discussion and agreed to use tylenol/oxycodone if needed for pain, which is well controlled at present. Questions/concerns addressed at this time. Allergies Allergy/AdvReac Type Severity Reaction Status Date / Time amoxicillin AdvReac Mild Nausea Verified 05/22/23 09:47 codeine AdvReac Mild Upset Verified 05/22/23 09:47 stomach Home Medications Medication Instructions Recorded Confirmed Type propylene glycol 0.6 % eye drops 1 drops ophthalmic (eye) BID PRN 05/30/19 05/22/23 History (Systane Balance) Dry Eye(S) lisinopril 5 mg tablet 5 mg PO QAM #90 tabs 07/11/22 05/22/23 Rx alendronate 70 mg tablet (Fosamax) 70 mg PO ONCE 3 months #12 tabs 08/17/22 05/22/23 Rx cholecalciferol (vitamin D3) 50 50 mcg PO QAM 05/02/23 05/22/23 History mcg (2,000 unit) tablet (Vitamin D3) omeprazole 20 mg capsule,delayed 20 mg PO DAILY PRN Acid Reflux 05/02/23 05/22/23 History release trazodone 100 mg tablet 100 mg PO HS #90 tabs 05/02/23 05/22/23 Rx escitalopram oxalate 20 mg tablet 20 mg PO QAM 05/22/23 05/22/23 History (Lexapro) acetaminophen 500 mg tablet 1,000 mg PO Q8 #60 tabs 05/23/23 Rx (Tylenol Extra Strength) celecoxib 200 mg capsule (Celebrex) 200 mg PO DAILY #30 caps 05/23/23 Rx oxycodone 5 mg tablet 5 - 10 mg PO .Q4h-6h PRN pain #30 05/23/23 Rx tabs rivaroxaban 10 mg tablet (Xarelto) 10 mg PO DAILY #30 tabs 05/23/23 Rx Patient History Medical History Depression (emotion) Female bladder prolapse Food impaction of esophagus Hx (2020) History of DVT of lower extremity 1970s after childbirth HTN (hypertension) Osteoarthritis Osteoporosis Surgical History H/O total knee replacement left History of bilateral cataract extraction History of dilatation and curettage History of esophagogastroduodenoscopy (EGD) repaired diverticulum pouch History of left hip replacement History of open reduction and internal fixation (ORIF) procedure left tibia fracture (hardware removed) History of tooth extraction all teeth removed Family History Father Prostate cancer Kidney disease Mother Heart disease Brother Diabetes Kidney disease Other No family history of adverse response to anesthesia Denies family history of Ovarian cancer Myocardial infarction Breast cancer Colorectal cancer Social History Smoking Status: Never smoker Second Hand Exposure: No; Do You Dip or Chew Tobacco: No; Hx Alcohol Use: No Hx Substance Use: No Preferred Language: Maltese Communication Ability: Effective Hearing Ability: Normal Lamps Tester And Inspector Required: No Beliefs That Will Affect Care: None marital status: Current Living Situation: Alone current occupational status: other 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 [employer] Feels Safe at Home: Yes Safety Concerns: Feels Safe At This Time Childhood Exposure to Second-Hand Smoke: No Dental Care, Regularly: Yes Physical Activity Frequency: 5-6 Times per Week Seatbelt Use: always Sunscreen Use: No Assistive Devices: Walker Physical Exam Physical Exam: General: WD/WN elderly female sitting up in chair, just got done working with therapy, NAD, daughter at bedside HEENT: head normocephalic, atraumatic, mmm, trachea midline Resp: CTA, no w/c/r, on room air CV: RRR, no significant m/r/g, no pitting edema/calf tenderness GI: +BS, soft/NT : no melton MSK/Neuro: dressing to RIGHT knee c/d/i, drain w/bloody drainage present, NVI, pulses palpable, strength equal b/l LE Psych: AOx3, cooperative and pleasant with exam Results & Data Results & Data Vital Signs (Past 12 Hours) Vital Signs Temp Pulse Resp BP Pulse Ox O2 Del Method 05/23/23 03:18 36.6 C 68 18 155/80 H 98 Room Air 05/22/23 21:57 36.7 C 86 18 163/79 H 96 Room Air Laboratory Results 05/23/23 05/23/23 05/23/23 Range/Units 05:34 05:34 05:34 WBC 15.85 H (4.8-10.8) K/ul RBC 3.73 L (4.20-5.40) M/uL Hgb 10.7 L (12.0-16.0) g/dl Hct 32.0 L (37.0-47.0) % MCV 85.8 (80.0-100.0) fL MCH 28.7 (25.0-34.0) pg MCHC 33.4 (32.0-36.0) g/dL RDW Std Deviation 42.3 (36.4-46.3) fL RDW Coeff of Robin 13.5 (11.5-14.5) % Plt Count 188 (130-400) K/uL MPV 11.9 (9.4-12.4) fL Sodium (136-145) mmol/L Potassium (3.5-5.1) mmol/L Chloride (98-107) mmol/L Carbon Dioxide (21-32) mmol/L Anion Gap (3-11) BUN (6-23) mg/dl Creatinine (0.6-1.2) mg/dl Est Cr Clr Drug Dosing ml/min Est GFR ( Amer) ml/min Est GFR (Non-Af Amer) ml/min BUN/Creatinine Ratio (10-20) Glucose (70-99(Fasting)) mg/dl Calcium (8.6-10.3) mg/dl Ionized Calcium 1.36 H (1.12-1.32) mmol/L Magnesium (1.7-2.4) mg/dl Albumin (3.4-5.0) gm/dl 25-OH Vitamin D Total (30-100) ng/ml PTH Intact 85.8 (12.0-88.0) pg/ml 05/23/23 05/23/23 Range/Units 05:34 05:34 WBC (4.8-10.8) K/ul RBC (4.20-5.40) M/uL Hgb (12.0-16.0) g/dl Hct (37.0-47.0) % MCV (80.0-100.0) fL MCH (25.0-34.0) pg MCHC (32.0-36.0) g/dL RDW Std Deviation (36.4-46.3) fL RDW Coeff of Robin (11.5-14.5) % Plt Count (130-400) K/uL MPV (9.4-12.4) fL Sodium 137 (136-145) mmol/L Potassium 4.8 (3.5-5.1) mmol/L Chloride 108 H (98-107) mmol/L Carbon Dioxide 25 (21-32) mmol/L Anion Gap 4 (3-11) BUN 25 H (6-23) mg/dl Creatinine 0.94 (0.6-1.2) mg/dl Est Cr Clr Drug Dosing 38.2 ml/min Est GFR ( Amer) 65.5 ml/min Est GFR (Non-Af Amer) 56.5 ml/min BUN/Creatinine Ratio 26.6 H (10-20) Glucose 98 (70-99(Fasting)) mg/dl Calcium 9.8 (8.6-10.3) mg/dl Ionized Calcium (1.12-1.32) mmol/L Magnesium 1.7 (1.7-2.4) mg/dl Albumin 3.4 (3.4-5.0) gm/dl 25-OH Vitamin D Total 41.8 (30-100) ng/ml PTH Intact (12.0-88.0) pg/ml Diagnostic Findings Knee X-Ray 05/22/23 14:03 TWO VIEWS RIGHT KNEE CLINICAL HISTORY: Postoperative examination. FINDINGS: AP and crosstable lateral portable views of the right knee are obtained. A right knee arthroplasty is in near anatomic alignment. There has been undersurface remodeling of the patella. No acute fracture is seen. There are expected postoperative changes around the knee including skin clips, a surgical drain, soft tissue edema, and subcutaneous gas. IMPRESSION: Expected postoperative changes status post right knee arthroplasty. No acute fracture is seen. ACT 112: Negative or not required by law. Electronically signed by: Stephon Tay M.D. 05/22/2023 2:50 PM PG Care Time/CCT Total # of Minutes Spent Total Time Spent with Patient: Total time spent is greater than 50% in coordination of care (as documented) at patient's floor/unit and/or counseling patient: Coding Level of Care Code 94850 IN/OBS CONSULT LVL 3,45M Diagnoses Primary osteoarthritis of right knee M17.11 HTN (hypertension) I10 Osteoporosis M81.0 Familial hypocalciuric hypercalcemia E83.52 Acid reflux K21.9 Hypercholesteremia E78.00
[2023-05-23 08:06] LABS: Albumin Level 3.4 gm/dl (3.4-5.0)
[2023-05-23] MEDS: DOCUSATE SODIUM 100 MG CAP PO SCH (08:50)
[2023-05-23] MEDS ORDERED: lisinopril 5 MG TAB PO SCH (09:00)
[2023-05-23] MEDS ORDERED: ESCITALOPRAM OXALATE 20 MG TAB PO SCH (09:00)
[2023-05-23] MEDS ORDERED: RIVAROXABAN 10 MG TABLET PO SCH (09:00)
[2023-05-23] MEDS ORDERED: CHOLECALCIFEROL 1,000 UNITS 25 MCG TAB PO SCH (09:00)
[2023-05-23] MEDS ORDERED: MULTIVITAMIN TAB PO SCH (09:00)
--- NOTE | 2023-05-24 08:08 | Discharge Summary ---
Date of Service May 24, 2023 Admission HPI Per Admitting Provider 82 yo female with PMHx significant for hx of DVT, HTN, who presents with ongoing right knee pain. Pain is interfering with her daily activity. She has failed conservative measures and would like to proceed with surgery. Patient denies headaches, sweats, fevers, chills, double vision, blurred vision, cough, sore throat, dysphagia, chest pain, sob, wheezing, n/v/d/c, numbness, tingling, fatigue, urinary symptoms, mood disorders. ROS positive for right knee pain and stiffness. Admission Exam Per Admitting Provider Constitutional: well developed and well nourished; no acute distress Eyes: PERRL, conjunctivae normal, anicteric sclerae ENMT: external ear and nose normal, oropharynx normal Neck: trachea midline, no thyromegaly Respiratory: normal respiratory effort, lungs clear to auscultation Cardiovascular: RRR, no murmur, no edema Musculoskeletal: Right knee: Varus alignment. Mild effusion. Medial joint line tenderness. Positive Miguel's, stable to valgus and varus stress. ROM 0-115 degrees. Skin: no rashes, warm and dry Neurologic: patellar DTR's 2+ bilat, sensation intact Psychiatric: A+Ox3, euthymic affect Principal Diagnosis Right knee osteoarthritis Discharge Exam Right knee: Dressing is clean, dry, intact. Toes are mobile with good dorsiflexion. No calf tenderness. Able to straight leg raise. Distally neurovascular status and sensation is grossly intact. Discharge Data Allergies Allergy/AdvReac Type Severity Reaction Status Date / Time amoxicillin AdvReac Mild Nausea Verified 05/22/23 09:47 codeine AdvReac Mild Upset Verified 05/22/23 09:47 stomach Consultations 05/17/23 14:46 Consult Hospitalist Routine 05/23/23 09:49 Consult [facility] vocational instructor Routine Procedures Performed Operation Date: 05/22/23 11:00 Actual Procedures p Right Total Knee Arthroplasty(Right) - Esvin Nance MD Ordered Studies 05/22/23 05:00 US - OR guided needle placemen Routine Hospital Course (1) Primary osteoarthritis of right knee: Postop day #1 right total knee arthroplasty -Pain management as written -PT/OT -DVT prophylaxis: SCDs, teds, Xarelto 10 mg daily -AM labs: Hemoglobin 10.7 acute blood loss anemia due to surgical loss versus dilutional. Leukocytosis likely reactive due to surgical stress versus perioperative steroids. Patient is asymptomatic. -Discharge planning: Plan on discharge home with outpatient therapy. Plan on discharge home likely today. Lab Results 05/23/23 05/23/23 05/23/23 Range/Units 05:34 05:34 05:34 WBC 15.85 H (4.8-10.8) K/ul RBC 3.73 L (4.20-5.40) M/uL Hgb 10.7 L (12.0-16.0) g/dl Hct 32.0 L (37.0-47.0) % MCV 85.8 (80.0-100.0) fL MCH 28.7 (25.0-34.0) pg MCHC 33.4 (32.0-36.0) g/dL RDW Std Deviation 42.3 (36.4-46.3) fL RDW Coeff of Robin 13.5 (11.5-14.5) % Plt Count 188 (130-400) K/uL MPV 11.9 (9.4-12.4) fL Sodium 137 (136-145) mmol/L Potassium 4.8 (3.5-5.1) mmol/L Chloride 108 H (98-107) mmol/L Carbon Dioxide 25 (21-32) mmol/L Anion Gap 4 (3-11) BUN 25 H (6-23) mg/dl Creatinine 0.94 (0.6-1.2) mg/dl Est Cr Clr Drug Dosing 38.2 ml/min Est GFR ( Amer) 65.5 ml/min Est GFR (Non-Af Amer) 56.5 ml/min BUN/Creatinine Ratio 26.6 H (10-20) Glucose 98 (70-99(Fasting)) mg/dl Calcium 9.8 (8.6-10.3) mg/dl Ionized Calcium (1.12-1.32) mmol/L Magnesium 1.7 (1.7-2.4) mg/dl Albumin 3.4 (3.4-5.0) gm/dl 25-OH Vitamin D Total 41.8 (30-100) ng/ml PTH Intact (12.0-88.0) pg/ml 05/23/23 05/23/23 Range/Units 05:34 05:34 WBC (4.8-10.8) K/ul RBC (4.20-5.40) M/uL Hgb (12.0-16.0) g/dl Hct (37.0-47.0) % MCV (80.0-100.0) fL MCH (25.0-34.0) pg MCHC (32.0-36.0) g/dL RDW Std Deviation (36.4-46.3) fL RDW Coeff of Robin (11.5-14.5) % Plt Count (130-400) K/uL MPV (9.4-12.4) fL Sodium (136-145) mmol/L Potassium (3.5-5.1) mmol/L Chloride (98-107) mmol/L Carbon Dioxide (21-32) mmol/L Anion Gap (3-11) BUN (6-23) mg/dl Creatinine (0.6-1.2) mg/dl Est Cr Clr Drug Dosing ml/min Est GFR ( Amer) ml/min Est GFR (Non-Af Amer) ml/min BUN/Creatinine Ratio (10-20) Glucose (70-99(Fasting)) mg/dl Calcium (8.6-10.3) mg/dl Ionized Calcium 1.36 H (1.12-1.32) mmol/L Magnesium (1.7-2.4) mg/dl Albumin (3.4-5.0) gm/dl 25-OH Vitamin D Total (30-100) ng/ml PTH Intact 85.8 (12.0-88.0) pg/ml Total Time Total Time Spent Total Time Spent (In Minutes): 20 Discharge Plan Discharge Items Patient Disposition: Home - Self-Care Reason For Visit: Right Knee Osteoarthritis Discharge Diagnosis: Right knee osteoarthritis Activity: Per Instructions section Non-emergency contact: Surgeon Call non-emergency contact if: you have any medication questions, your pain is not controlled, your pain is concerning for you, you have a fever, your temperature is above 101, your wound has increased redness and your wound has increased drainage Follow-up/Referrals: Mona Parra MD [Primary Care Provider] - Diet: Regular Addtl Attending Provider Instructions: ACTIVITY RECOMMENDATIONS: SELF CARE INSTRUCTIONS AFTER TOTAL KNEE REPLACEMENT A. You may need to continue a physical therapy program after discharge from the hospital. There are several options available to you. Your doctor will assist you in selecting the best one for you. 1. An out-patient facility 2 to 3 times a week for therapy or home therapy. 2. Continue working on all exercises taught to you in the hospital. Your goals should be to increase bending of your knee to 90 degrees and beyond and to fully straighten your knee. B. You may progress at your own pace from walking with a walker or crutches to a cane; then to no assistive devices. C. Make walking a part of your daily routine. Be up as much as comfortable with rest periods throughout the day. Rest with leg elevation is very important. Use the ice wrap frequently for the first 3-4 weeks. D. There are no restrictions on activities. You may ride in a car, shop, participate in oracle specialist and all social activities. E. Wear the long elastic stockings (MENA hose) 20 hours a day for 2 weeks after surgery. They can be removed several times a day for laundering and for a bath. F. You may shower, no tub baths until cleared by your doctor. SPECIAL CARE INSTRUCTIONS: VERY IMPORTANT TO READ AND REVIEW A. There are a few signs you need to watch for after you are home. Call [facility] if you notice any of the followin. Increased severe knee pain. Some pain is expected especially when you exercise. 2. Increased swelling in your leg or knee; pain or swelling of the calf muscle in either lower leg. 3. Any fluid drainage from the incision. 4. Shortness of breath or chest pain. B. Please call [facility] at if you have any concerns or questions about your operation or recovery. The doctor or his nurse will return your call promptly. C. You must take antibiotics before dental work, bladder, bowel or other surgery. Your doctor will provide you with a permanent care to carry describing this precaution. IMPORTANT: * REMEMBER TO TAKE ASPIRIN, 81 MG, TWICE DAILY FOR 4 WEEKS UNLESS OTHERWISE DIRECTED. THIS IS YOUR BLOOD THINNER. * HIGH RISK PATIENTS MAY BE PRESCRIBED A STRONGER BLOOD THINNER. THIS WILL BE PROVIDED AT DISCHARGE. * CALL IF INCREASED PAIN, REDNESS, DRAINAGE OR FEVER GREATER THAT 101. * WEAR MENA HOSE 20 HOURS PER DAY FOR 2 WEEKS. There is a large suction dressing covering your incision. This will help pull any excess drainage from the wound and allow your incision to heal properly. You may shower with this if you can keep the unit outside of the shower. If any bleeding or leakage is noted please call your doctor's office. This will remain on your incision for 7 days and then should be removed. This can be done yourself or by the home nursing staff if applicable. The entire unit is disposable once removed. Once removed, keep incision clean and dry. If redness or drainage is noted, please call your surgeon. IF INCISION IS LEAKING THROUGH DRESSING, CALL THE OFFICE . FOLLOW UP VISIT: If appointment is not already scheduled: Please call [facility] to make a follow-up appointment for 2 weeks after your surgery at . Stand-Alone Forms: imeem, Smoking Cessation Medications and DC Order Prescriptions: New acetaminophen [Tylenol Extra Strength] 500 mg Tablet 1,000 mg PO Q8 Qty: 60 0RF oxycodone 5 mg Tablet 5 - 10 mg PO .Q4h-6h MDD 6 PRN (Reason: pain) Qty: 30 0RF Rx Instructions: Ongoing therapy, Dr. Nance supervising Xarelto 10 mg Tablet 10 mg PO DAILY Qty: 30 0RF celecoxib [Celebrex] 200 mg capsule 200 mg PO DAILY Qty: 30 0RF Continued lisinopril 5 mg tablet 5 mg PO QAM Qty: 90 3RF trazodone 100 mg tablet 100 mg PO HS Qty: 90 3RF Systane Balance 0.6 % drops 1 drops OP BID PRN (Reason: Dry Eye(S)) alendronate [Fosamax] 70 mg tablet 70 mg PO ONCE 90 Days Qty: 12 4RF Patient Comments: takes on Sundays Rx Instructions: Take 1 tablet, once weekly with 8 oz plain water. Wait 60 minutes before eating/drinking anything else cholecalciferol (vitamin D3) [Vitamin D3] 50 mcg (2,000 unit) Tablet 50 mcg PO QAM omeprazole 20 mg capsule,delayed release(DR/EC) 20 mg PO DAILY PRN (Reason: Acid Reflux) escitalopram oxalate [Lexapro] 20 mg tablet 20 mg PO QAM Discharge Orders: Discharge Order (Routine); Ordered 05/23/23 Ordered By: Blas Arellano Admission Data Admit Date/Time: 05/22/23 14:03 Attending Provider: Esvin Nance Admit Provider: Esvin Nance Primary Care Provider: Mona Parra Other Providers: Jonn Harris Other Interventions: Discharge Summary Assessment (RN) Last Done: 05/23/23 10:30
== END 2023-05-23 11:19 | disposition home or self-care (01) ==
LOC: ASU 09:24 → 3E 09:24